=== PATIENT | female | born 1995 | race Caucasian/White ===

== ENCOUNTER → 2017-03-15 | Outpatient (CLI) | payer OTHER ==
[2017-03-15 12:21] LABS: ALT 36 U/L (9-52); AST 17 U/L (14-36); Alkaline Phosphatase 87 U/L (38-126); Anion Gap 13 mmol/L; Blood Urea Nitrogen 10 mg/dL (7-17); Carbon Dioxide 25 mmol/L (22-30); Chloride 105 mmol/L (98-107); Glucose 87 mg/dL (74-99); Non-African American GFR(MDRD) >60 (>60 ml/min/1.73 sqM); Potassium 4.4 mmol/L (3.5-5.1); Sodium 143 mmol/L (137-145); Total Bilirubin 0.4 mg/dL (0.2-1.3); Total Protein 7.5 g/dL (6.3-8.2)
[2017-03-15 12:26] LABS: Basophils % (A) 0 %; CH 29.1; CHCM 33.2; Eosinophils # (A) 0.4 k/uL (0-0.7); Eosinophils % (A) 5 %; HCT 39.8 % (34.0-46.0); HDW 2.42; HGB 13.3 gm/dL (11.4-16.0); Luc % (Auto) 3; Lymphocytes # (A) 1.7 k/uL (1.0-4.8); Lymphocytes % (A) 26 %; MCH 29.4 pg (25.0-35.0); MCHC 33.5 g/dL (31.0-37.0); Mean Platelet Volume 6.6; Monocytes # (A) 0.3 k/uL (0-1.0); Monocytes % (A) 4 %; Neutrophils # (A) 3.9 k/uL (1.3-7.7); Neutrophils % (A) 61 %; RBC 4.52 m/uL (3.80-5.40); WBC 6.4 k/uL (4.0-11.0); WBC (Perox) 6.49
[2017-03-15 13:09] LABS: Vitamin B12 425 pg/mL (239-931)
[2017-03-16 06:43] LABS: EBV - EA (IgG) 77.5 U/mL (<9.0); EBV - VCA IgM 13.8 U/mL (<36.0)
[2017-03-17 13:00] LABS: Strep DNASE B Antibody <86 U/mL (0-260)
== END | disposition home or self-care (01) ==
LOC: LABWHC1 11:09
PROVIDERS: ATTEND Pediatrics Adolescent Medicine
DX: Z00.01 Encounter for general adult medical examination with abnormal findings (principal); F33.9 Major depressive disorder, recurrent, unspecified
CPT/HCPCS: 36415; 80053; 82306; 82607; 85025; 86060; 86215; 86663; 86664; 86665

== ENCOUNTER → 2017-09-27 | Outpatient (CLI) | payer OTHER ==
[2017-09-27 11:35] LABS: Basophils % (A) 0 %; Eosinophils # (A) 0.2 k/uL (0-0.7); Eosinophils % (A) 2 %; HCT 43.6 % (34.0-46.0); HGB 14.1 gm/dL (11.4-16.0); Lymphocytes # (A) 1.7 k/uL (1.0-4.8); Lymphocytes % (A) 24 %; MCH 28.6 pg (25.0-35.0); MCHC 32.4 g/dL (31.0-37.0); MCV 88.2 fL (80.0-100.0); Mean Platelet Volume 6.6; Monocytes # (A) 0.3 k/uL (0-1.0); Monocytes % (A) 4 %; Neutrophils # (A) 4.8 k/uL (1.3-7.7); Neutrophils % (A) 68 %; Platelet Count 276 k/uL (150-450); RBC 4.94 m/uL (3.80-5.40); RDW 13.1 % (11.5-15.5); WBC 7.1 k/uL (4.0-11.0)
[2017-09-27 11:53] LABS: ALT 26 U/L (9-52); AST 18 U/L (14-36); Albumin 4.1 g/dL (3.5-5.0); Alkaline Phosphatase 84 U/L (38-126); Amylase 51 U/L (30-110); Anion Gap 11 mmol/L; Blood Urea Nitrogen 16 mg/dL (7-17); Calcium 9.5 mg/dL (8.4-10.2); Carbon Dioxide 27 mmol/L (22-30); Chloride 104 mmol/L (98-107); Glucose 83 mg/dL (74-99); Lipase 136 U/L (23-300); Potassium 4.2 mmol/L (3.5-5.1); Sodium 142 mmol/L (137-145); Total Bilirubin 0.3 mg/dL (0.2-1.3); Total Protein 7.2 g/dL (6.3-8.2)
[2017-09-27 13:41] LABS: Erythrocyte Sedimentation Rate 8 mm/hr (0-20)
== END | disposition home or self-care (01) ==
LOC: LABWHC1 10:59
PROVIDERS: ATTEND Pediatrics Adolescent Medicine
DX: R10.84 Generalized abdominal pain (principal)
CPT/HCPCS: 36415; 80053; 82150; 83690; 85025; 85652; 86060; 86215; 86308

== ENCOUNTER → 2017-09-27 | Outpatient (CLI) | payer OTHER ==
--- NOTE | 2017-09-27 11:44 | US ---
EXAMINATION TYPE: US abdomen complete DATE OF EXAM: 09/27/2017 COMPARISON: NONE CLINICAL HISTORY: R1084 ABD PAIN. Abd pain EXAM MEASUREMENTS: Liver Length: 15.6 cm Gallbladder Wall: 0.1 cm CBD: 0.4 cm Spleen: 10 cm Right Kidney: 11.5 x 3.9 x 4.8 cm Left Kidney: 10.8 x 4.1 x 4.9 cm Some limitations due to overlying bowel gas. Pancreas: wnl Liver: wnl Gallbladder: wnl Evidence for sonographic Moya's sign: No CBD: wnl Spleen: wnl Right Kidney: wnl Left Kidney: wnl Upper IVC: wnl Abd Aorta: wnl IMPRESSION: 1. Unremarkable ultrasound abdomen.
== END | disposition home or self-care (01) ==
LOC: RADUSWWP 10:25
PROVIDERS: ATTEND Pediatrics Adolescent Medicine
DX: R10.84 Generalized abdominal pain (principal)
CPT/HCPCS: 76700

== ENCOUNTER 2017-09-29 10:25 | Emergency (ER) | payer OTHER ==
[2017-09-29] MEDS ORDERED: KETOROLAC 30 MG/ML 1 ML VIAL IVP STA (11:08)
[2017-09-29] MEDS ORDERED: SODIUM CHLORIDE 0.9% 1,000 ML IV STA (11:08)
[2017-09-29] MEDS ORDERED: ONDANSETRON 4 MG/2 ML VIAL IVP STA (11:08)
--- NOTE | 2017-09-29 11:39 | ED ---
Abdominal Pain HPI - General Chief Complaint: Abdominal Pain Stated Complaint: LEFT SIDE/FLANK PAIN Time Seen by Provider: 09/29/17 10:41 Source: patient, RN notes reviewed, old records reviewed Mode of arrival: ambulatory Limitations: no limitations - History of Present Illness Initial Comments: This patient is a 22-year-old female presents for his retching complaint of intermittent abdominal pain. She reports that a few weeks that she was having some sharp right-sided abdominal pain lasted for 20 minutes she states that that pain subsided afterwards. Patient reports over the past few days. Having some pain in her left flank radiates down her abdomen. Denies any urinary symptoms. No history of kidney stones. Patient relates that she had ovarian cysts in the past about maybe the pain was related to this. She reports she feels nauseated. She states that she has history of constipation. She did have some bloody stools over the past few weeks but has not had anything recently. - Related Data Home Medications Medication Instructions Recorded Confirmed Ibuprofen [Motrin Ib] 800 mg PO Q6H PRN 09/29/17 09/29/17 Previous Rx's Medication Instructions Recorded Dicyclomine [Bentyl] 10 mg PO TID #12 capsule 09/29/17 Ondansetron [Zofran] 4 mg PO Q8HR PRN #12 tab 09/29/17 traMADol HCl [Ultram] 50 mg PO Q6H PRN #12 tab 09/29/17 Allergies Allergy/AdvReac Type Severity Reaction Status Date / Time No Known Allergies Allergy Verified 09/29/17 11:20 Review of Systems ROS Statement: Those systems with pertinent positive or pertinent negative responses have been documented in the HPI. ROS Other: All systems not noted in ROS Statement are negative. Past Medical History Past Medical History: No Reported History History of Any Multi-Drug Resistant Organisms: None Reported Past Surgical History: No Surgical Hx Reported Past Psychological History: Depression Smoking Status: Never smoker Past Alcohol Use History: Occasional Past Drug Use History: None Reported General Exam Limitations: no limitations Course Vital Signs 09/29/17 09/29/17 09/29/17 10:35 13:30 14:30 Temperature 97.8 F Pulse Rate 84 70 72 Respiratory 16 18 18 Rate Blood Pressure 128/78 128/78 118/80 O2 Sat by Pulse 100 98 98 Oximetry 09/29/17 15:01 Temperature 98.6 F Pulse Rate 80 Respiratory 18 Rate Blood Pressure 123/76 O2 Sat by Pulse 98 Oximetry Medical Decision Making - Medical Decision Making This patient is a 22-year-old female presents for complaint of intermittent abdominal pain. She reports that a few weeks that she was having some sharp right-sided abdominal pain lasted for 20 minutes she states that that pain subsided afterwards. Patient reports over the past few days ahe Having some pain in her left flank radiates down her abdomen. Denies any urinary symptoms. No history of kidney stones. Patient has tenderness over left lower abdominal pain. jPatient is mildly tendern. Lab work preformed and shows no abnormalities. Patient underwent CT scan, negaitve for any acute process. Patient has a right ovarian cyst. Discussed patient symptoms sound similiar to IBS, and pain can be from ovarian cyst as well. Discussed follow up with GI and [facility] specialty. REturn paramters discussed. - Lab Data Result diagrams: 09/29/17 11:35 09/29/17 11:35 Lab Results 09/29/17 09/29/17 09/29/17 Range/Units 11:25 11:25 11:35 WBC (4.0-11.0) k/uL RBC (3.80-5.40) m/uL Hgb (11.4-16.0) gm/dL Hct (34.0-46.0) % MCV (80.0-100.0) fL MCH (25.0-35.0) pg MCHC (31.0-37.0) g/dL RDW (11.5-15.5) % Plt Count (150-450) k/uL Neutrophils % % Lymphocytes % % Monocytes % % Eosinophils % % Basophils % % Neutrophils # (1.3-7.7) k/uL Lymphocytes # (1.0-4.8) k/uL Monocytes # (0-1.0) k/uL Eosinophils # (0-0.7) k/uL Basophils # (0-0.2) k/uL Sodium 142 (137-145) mmol/L Potassium 4.4 (3.5-5.1) mmol/L Chloride 105 (98-107) mmol/L Carbon Dioxide 26 (22-30) mmol/L Anion Gap 11 mmol/L BUN 13 (7-17) mg/dL Creatinine 0.70 (0.52-1.04) mg/dL Est GFR (MDRD) Af Amer >60 (>60 ml/min/1.73 sqM) Est GFR (MDRD) Non-Af >60 (>60 ml/min/1.73 sqM) Glucose 85 (74-99) mg/dL Calcium 10.1 (8.4-10.2) mg/dL Total Bilirubin 0.4 (0.2-1.3) mg/dL AST 24 (14-36) U/L ALT 31 (9-52) U/L Alkaline Phosphatase 97 (38-126) U/L Total Protein 8.3 H (6.3-8.2) g/dL Albumin 4.6 (3.5-5.0) g/dL Amylase 78 (30-110) U/L Lipase 166 (23-300) U/L Urine Color Light Yellow Urine Appearance Cloudy H (Clear) Urine pH 6.5 (5.0-8.0) Ur Specific [place] 1.018 (1.001-1.035) Urine Protein Negative (Negative) Urine Glucose (UA) Negative (Negative) Urine Ketones Negative (Negative) Urine Blood Negative (Negative) Urine Nitrite Negative (Negative) Urine Bilirubin Negative (Negative) Urine Urobilinogen <2.0 (<2.0) mg/dL Ur Leukocyte Esterase Negative (Negative) Urine RBC 1 (0-5) /hpf Urine WBC 2 (0-5) /hpf Ur Squamous Epith Cells 6 H (0-4) /hpf Urine Bacteria Few H (None) /hpf Urine Mucus Rare H (None) /hpf Urine HCG, Qual Not Detected (Not Detectd) 09/29/17 Range/Units 11:35 WBC 8.7 (4.0-11.0) k/uL RBC 4.99 (3.80-5.40) m/uL Hgb 14.3 (11.4-16.0) gm/dL Hct 43.1 (34.0-46.0) % MCV 86.3 (80.0-100.0) fL MCH 28.7 (25.0-35.0) pg MCHC 33.3 (31.0-37.0) g/dL RDW 13.4 (11.5-15.5) % Plt Count 273 (150-450) k/uL Neutrophils % 69 % Lymphocytes % 22 % Monocytes % 5 % Eosinophils % 2 % Basophils % 0 % Neutrophils # 6.1 (1.3-7.7) k/uL Lymphocytes # 1.9 (1.0-4.8) k/uL Monocytes # 0.4 (0-1.0) k/uL Eosinophils # 0.2 (0-0.7) k/uL Basophils # 0.0 (0-0.2) k/uL Sodium (137-145) mmol/L Potassium (3.5-5.1) mmol/L Chloride (98-107) mmol/L Carbon Dioxide (22-30) mmol/L Anion Gap mmol/L BUN (7-17) mg/dL Creatinine (0.52-1.04) mg/dL Est GFR (MDRD) Af Amer (>60 ml/min/1.73 sqM) Est GFR (MDRD) Non-Af (>60 ml/min/1.73 sqM) Glucose (74-99) mg/dL Calcium (8.4-10.2) mg/dL Total Bilirubin (0.2-1.3) mg/dL AST (14-36) U/L ALT (9-52) U/L Alkaline Phosphatase (38-126) U/L Total Protein (6.3-8.2) g/dL Albumin (3.5-5.0) g/dL Amylase (30-110) U/L Lipase (23-300) U/L Urine Color Urine Appearance (Clear) Urine pH (5.0-8.0) Ur Specific [place] (1.001-1.035) Urine Protein (Negative) Urine Glucose (UA) (Negative) Urine Ketones (Negative) Urine Blood (Negative) Urine Nitrite (Negative) Urine Bilirubin (Negative) Urine Urobilinogen (<2.0) mg/dL Ur Leukocyte Esterase (Negative) Urine RBC (0-5) /hpf Urine WBC (0-5) /hpf Ur Squamous Epith Cells (0-4) /hpf Urine Bacteria (None) /hpf Urine Mucus (None) /hpf Urine HCG, Qual (Not Detectd) - Radiology Data Radiology results: report reviewed Dominant right ovarian cyst. Otherwise negative CT of the abdomen and pelvis. 3 cm cyst on the right ovary. Disposition Clinical Impression: Ovarian cyst, Abdominal pain Disposition: HOME SELF-CARE Condition: Good Instructions: Abdominal Pain (ED) Additional Instructions: Patient advised follow-up with primary care physician as well as the GI and OB/ [facility] PA[facility]ABLE [facility]IST[facility] specialist. Return to the emergency department if any alarming signs or symptoms occur. Prescriptions: Dicyclomine [Bentyl] 10 mg PO TID #12 capsule Ondansetron [Zofran] 4 mg PO Q8HR PRN #12 tab PRN Reason: Pain traMADol HCl [Ultram] 50 mg PO Q6H PRN #12 tab PRN Reason: Pain Referrals: Jenny Lowry MD [Primary Care Provider] - 1-2 days Martin Laughlin MD [STAFF PHYSICIAN] - 1-2 days Soco Correa MD [STAFF PHYSICIAN] - 1-2 days Time of Disposition: 14:33
[2017-09-29 11:40] LABS: Appearance,Urine Cloudy (Clear); Bacteria,Urine Few /hpf; Bilirubin,Urine Negative (Negative); Blood,Urine Negative (Negative); Color,Urine Light Yellow; Glucose,Urine (UA) Negative (Negative); Ketones,Urine Negative (Negative); Leukocyte Esterase,Urine Negative (Negative); Mucus,Urine Rare /hpf; PH, Urine 6.5 (5.0-8.0); Protein,Urine Negative (Negative); RBC,Urine 1 /hpf (0-5); Specific Gravity,Urine 1.018 (1.001-1.035); Squamous Epithelial Cell,Urine 6 /hpf (0-4); Urobilinogen,Urine <2.0 mg/dL (<2.0); WBC,Urine 2 /hpf (0-5)
[2017-09-29 11:50] LABS: Basophils % (A) 0 %; Eosinophils # (A) 0.2 k/uL (0-0.7); Eosinophils % (A) 2 %; HCT 43.1 % (34.0-46.0); HGB 14.3 gm/dL (11.4-16.0); Lymphocytes # (A) 1.9 k/uL (1.0-4.8); Lymphocytes % (A) 22 %; MCH 28.7 pg (25.0-35.0); MCHC 33.3 g/dL (31.0-37.0); MCV 86.3 fL (80.0-100.0); Mean Platelet Volume 6.9; Monocytes # (A) 0.4 k/uL (0-1.0); Monocytes % (A) 5 %; Neutrophils # (A) 6.1 k/uL (1.3-7.7); Neutrophils % (A) 69 %; Platelet Count 273 k/uL (150-450); RBC 4.99 m/uL (3.80-5.40); RDW 13.4 % (11.5-15.5); WBC 8.7 k/uL (4.0-11.0)
[2017-09-29 12:03] LABS: ALT 31 U/L (9-52); AST 24 U/L (14-36); Albumin 4.6 g/dL (3.5-5.0); Alkaline Phosphatase 97 U/L (38-126); Amylase 78 U/L (30-110); Anion Gap 11 mmol/L; Blood Urea Nitrogen 13 mg/dL (7-17); Calcium 10.1 mg/dL (8.4-10.2); Carbon Dioxide 26 mmol/L (22-30); Chloride 105 mmol/L (98-107); Glucose 85 mg/dL (74-99); Lipase 166 U/L (23-300); Potassium 4.4 mmol/L (3.5-5.1); Sodium 142 mmol/L (137-145); Total Bilirubin 0.4 mg/dL (0.2-1.3); Total Protein 8.3 g/dL (6.3-8.2)
--- NOTE | 2017-09-29 12:43 | XR ---
EXAMINATION TYPE: XR KUB DATE OF EXAM: 09/29/2017 COMPARISON: NONE HISTORY: Flank pain. Abdominal pain. TECHNIQUE: 2 views FINDINGS: Bowel gas pattern is normal. There is no sign of intestinal obstruction or pneumoperitoneum . Fecal pattern is normal. There is no evidence of a mass. There are no pathologic calcifications. Angela ng bases are clear. IMPRESSION: Nonacute abdomen.
[2017-09-29] MEDS ORDERED: RX INFO: IV CONTRAST WAS GIVEN 1 EACH MISC MISCELLANE PRN (13:28)
--- NOTE | 2017-09-29 14:20 | CT ---
EXAMINATION TYPE: CT abdomen pelvis w con DATE OF EXAM: 09/29/2017 COMPARISON: NONE HISTORY: Lt sided pain CT DLP: 1638 mGycm Automated exposure control for dose reduction was used. TECHNIQUE: Helical acquisition of images was performed from the lung bases through the pelvis. CONTRAST: Performed without Oral Contrast and with IV Contrast, patient injected with 100 mL of Omnipaque 300. FINDINGS: Lung bases are clear. There is no pleural effusion. Heart size is normal. Liver spleen pancreas gallbladder appear normal. Bile ducts are not dilated. There is no adrenal mass . Kidneys have normal size and contour. There is no hydronephrosis. Ureters are not dilated. There is no retroperitoneal adenopathy. There is no ascites. Bladder distends smoothly. There is a 3 cm cyst on the right ovary. The uterus is anteverted. I see no intestinal wall thickening. There are no dilated loops. There is no sign of appendicitis. Ap pendix is not definitely seen. I see no bony destructive process. IMPRESSION: DOMINANT RIGHT OVARIAN CYST. OTHERWISE NEGATIVE CT SCAN OF THE ABDOMEN AND PELVIS.
[2017-09-29 15:01] VITALS: RESP 18
[2017-09-29 15:02] VITALS: BP 123/76; PULSE 80; TEMP 98.6
== END 2017-09-29 15:01 | disposition home or self-care (01) ==
LOC: EC 10:25
DX: N83.201 Unspecified ovarian cyst, right side (principal); R11.0 Nausea
CPT/HCPCS: 36415; 80053; 82150; 83690; 85025; 81001; 81025; 87086; 74018; 74177; 99285; 96374; 96375; 96361; J2405; J1885; Q9967

== ENCOUNTER 2017-10-06 20:17 | Emergency (ER) | payer OTHER ==
--- NOTE | 2017-10-06 20:51 | ED ---
Fall HPI - General Chief Complaint: Fall Stated Complaint: [facility]-FALL,HEAD INJURY,NUMBNESS Time Seen by Provider: 10/06/17 20:24 Source: patient Mode of arrival: EMS - History of Present Illness Initial Comments: 22-year-old female patient presents to the emergency department today for evaluation after experiencing a slip and fall accident at work. Patient reports on 7:30 she was coming around a corner when she slipped in water and fell hitting her head on the floor. She denies a loss of consciousness but states her vision did go dark for a moment and she immediately started crying due to the pain. Patient is currently reporting headache, neck pain, and pain in her "tailbone". Patient states she is having some numbness in her lower extremities. She denies any loss of bowel or bladder control. Denies any saddle anesthesia. She denies any nausea or vomiting. Denies any chest pain, shortness of breath, dizziness, or weakness. She is also reporting some numbness in her bilateral hands. She denies any chance of , had a negative test here a few days ago. - Related Data Home Medications Medication Instructions Recorded Confirmed No Known Home Medications [No 10/06/17 10/06/17 Known Home Medications] Allergies Allergy/AdvReac Type Severity Reaction Status Date / Time No Known Allergies Allergy Verified 10/06/17 20:50 Review of Systems ROS Statement: Those systems with pertinent positive or pertinent negative responses have been documented in the HPI. ROS Other: All systems not noted in ROS Statement are negative. Past Medical History Past Medical History: No Reported History History of Any Multi-Drug Resistant Organisms: None Reported Past Surgical History: No Surgical Hx Reported Past Psychological History: Depression Smoking Status: Never smoker Past Alcohol Use History: Occasional Past Drug Use History: None Reported General Exam Limitations: no limitations, language barrier General appearance: alert, in no apparent distress, other (This is a well- developed, well-nourished adult female patient in no acute distress. Vital signs upon presentation are temperature 98.1F, pulse 100, respirations 16, blood pressure 129/85, pulse ox 100% on room air.) Head exam: Present: other (Patient has some soft tissue swelling and tenderness over the posterior scalp.) Eye exam: Present: normal appearance, PERRL, EOMI. Absent: scleral icterus, conjunctival injection, periorbital swelling ENT exam: Present: normal exam, normal oropharynx, mucous membranes moist Neck exam: Present: normal inspection, tenderness (Mild tenderness over the mid cervical spine). Absent: meningismus, full ROM (C-collar in place), lymphadenopathy Respiratory exam: Present: normal lung sounds bilaterally. Absent: respiratory distress, wheezes, rales, rhonchi, stridor Cardiovascular Exam: Present: regular rate, normal rhythm, normal heart sounds. Absent: systolic murmur, diastolic murmur, rubs, gallop, clicks GI/Abdominal exam: Present: soft, normal bowel sounds. Absent: distended, tenderness, guarding, rebound, rigid Extremities exam: Present: normal inspection, full ROM, normal capillary refill , other (Skin to the upper and lower extremities is pink, warm, and dry. Cap refills less than 3 seconds. Radial pulses are 2+ and equal bilaterally. Pedal pulses and posttibial pulses are 2+ and equal bilaterally.). Absent: tenderness, pedal edema, joint swelling, calf tenderness Back exam: Present: normal inspection, vertebral tenderness (Sacral spine tenderness) Neurological exam: Present: alert, oriented X3, CN II-XII intact Psychiatric exam: Present: normal affect, normal mood Skin exam: Present: warm, dry, intact, normal color. Absent: rash Course Vital Signs 10/06/17 10/06/17 10/06/17 20:23 22:11 23:19 Temperature 98.1 F 97.5 F L Pulse Rate 100 83 101 H Respiratory 16 18 17 Rate Blood Pressure 129/85 124/65 O2 Sat by Pulse 100 100 100 Oximetry Medical Decision Making - Medical Decision Making 22-year-old female patient presented to the emergency department today for evaluation after soap and fall injury at work. Physical examination did reveal tenderness to the posterior cervical spine as well as the sacral spine. Patient was neurologically intact. We did perform computed tomography scan of the brain and C-spine which was negative for any acute intracranial abnormalities were osseous abnormalities. We did clear the C-spine and patient went to x-ray for evaluation of her lumbosacral spine. X-ray was negative for any acute fracture or dislocations. Did discuss findings with the patient. She is instructed to take Tylenol Motrin for pain control. She is educated regarding head injury and concussion. She is instructed to follow-up with a no show health services or her primary care physician for further evaluation. She is instructed to return here immediately for any new, worsening, or concerning symptoms. She verbalizes understanding and agrees with this plan. - Radiology Data Radiology results: report reviewed, image reviewed 5 views of the lumbosacral spine showed lumbar vertebrae abnormal spacing [place]. Posterior elements are intact. Sacroiliac joints appear normal. There is no evidence of a compression fracture. Impression by Dr. Cabezas shows negative lumbar spine exam. CT of the head and cervical spine are performed without contrast. Findings show ventricles and sulci appear normal. There is no mass effect or midline shift. There is no sign of intracranial hemorrhage. The calvarium is intact. Cervical vertebra abnormal spacing alignment. Posterior elements are intact. Physical base is intact. There is no evidence of a fracture. Facet joint appears normal. Impression by Dr. Cabezas shows normal computed tomography scan of the brain, normal computed tomography scan of the cervical spine. Disposition Clinical Impression: Head injury, Acute low back pain, Contusion Disposition: HOME SELF-CARE Condition: Good Instructions: Concussion (ED), Head Injury (ED), Acute Low Back Pain (ED) Additional Instructions: Take medications as directed. Follow up with her primary care physician for recheck in 1-2 days. Return here immediately for any new, worsening, or concerning symptoms. Referrals: Jenny Lowry MD [Primary Care Provider] - 1-2 days Time of Disposition: 22:59
--- NOTE | 2017-10-06 22:25 | CT ---
EXAMINATION TYPE: CT brain twin wo con DATE OF EXAM: 10/06/2017 COMPARISON: NONE HISTORY: Head and neck pain after fall. CT DLP: 1388.6 mGycm Automated exposure control for dose reduction was used. TECHNIQUE: CT scan of the head and cervical spine are performed without contrast. FINDINGS: Ventricles and sulci appear normal. There is no mass effect nor midline shift. There is n o sign of intracranial hemorrhage. The calvarium is intact. Cervical vertebra have normal spacing and alignment. Posterior elements are intact. Skull base is int act. There is no evidence of a fracture. Facet joints appears normal. IMPRESSION: Normal CT scan of the brain. Normal CT scan of the cervical spine.
--- NOTE | 2017-10-06 22:54 | XR ---
EXAMINATION TYPE: XR lumbosacral spine min 4V DATE OF EXAM: 10/06/2017 COMPARISON: NONE HISTORY: Back pain TECHNIQUE: 5 views FINDINGS: The lumbar vertebra have normal spacing and alignment. Posterior elements are intact. Sacro iliac joints appear normal. There is no evidence of a compression fracture. IMPRESSION: Negative lumbar spine exam.
[2017-10-06] MEDS ORDERED: IBUPROFEN 600 MG TAB PO STA (22:59)
[2017-10-06] MEDS ORDERED: ACETAMINOPHEN TAB 325 MG TAB PO STA (22:59)
[2017-10-06 23:20] VITALS: BP 124/65; PULSE 101; RESP 17; TEMP 97.5
== END 2017-10-06 23:30 | disposition home or self-care (01) ==
LOC: EC 20:17
DX: S00.03XA Contusion of scalp, initial encounter (principal); M54.5 Low back pain; W01.198A Fall on same level from slipping, tripping and stumbling with subsequent striking against other object, initial encounter; Y92.69 Other specified industrial and construction area as the place of occurrence of the external cause; Y99.0 Civilian activity done for income or pay
CPT/HCPCS: 70450; 72110; 72125; 99284

== ENCOUNTER → 2017-12-10 | Outpatient (CLI) | payer OTHER | END | disposition home or self-care (01) | LOC: LABMAIN 18:25 | PROVIDERS: ATTEND Midwife | DX: N91.2 Amenorrhea, unspecified (principal) | CPT/HCPCS: 84702 ==

== ENCOUNTER 2018-09-03 06:57 | Emergency (ER) | payer BC, OTHER ==
[2018-09-03] MEDS ORDERED: KETOROLAC 30 MG/ML 1 ML VIAL IVP STA (07:30)
[2018-09-03] MEDS ORDERED: ONDANSETRON 4 MG/2 ML VIAL IVP STA (07:30)
[2018-09-03] MEDS ORDERED: ACETAMINOPHEN TAB 500 MG TAB PO STA (07:30)
[2018-09-03] MEDS ORDERED: SODIUM CHLORIDE 0.9% 1,000 ML IV ONE (07:30)
[2018-09-03 07:39] LABS: Amorphous Sediment,Urine Rare /hpf; Appearance,Urine Turbid (Clear); Bilirubin,Urine Negative (Negative); Blood,Urine Negative (Negative); Color,Urine Yellow; Glucose,Urine (UA) Negative (Negative); Ketones,Urine Negative (Negative); Leukocyte Esterase,Urine Negative (Negative); Mucus,Urine Occasional /hpf; Nitrite,Urine Negative (Negative); Protein,Urine Trace (Negative); Specific Gravity,Urine 1.025 (1.001-1.035); Squamous Epithelial Cell,Urine 6 /hpf (0-4)
--- NOTE | 2018-09-03 07:46 | ED ---
General Adult HPI - General Chief complaint: Back Pain/Injury Stated complaint: Back Pain Time Seen by Provider: 09/03/18 07:08 Source: patient, RN notes reviewed, old records reviewed Mode of arrival: ambulatory Limitations: no limitations - History of Present Illness Initial comments: 23-year-old female presenting with flulike symptoms. Patient states she's had nasal congestion, sore throat, subjective fever and chills as well as nausea for the past several days. Symptoms have worsened over the past 24 hours. Denies abdominal pain, denies diarrhea. Denies urinary frequency, urgency, or dysuria. Patient does report low back pain as well as generalized body aches. She said cough which is nonproductive. No chronic medical problems. - Related Data Previous Rx's Medication Instructions Recorded Azithromycin [Zithromax Z-pack] 0 mg PO DIRECTED #6 tab 09/03/18 Allergies Allergy/AdvReac Type Severity Reaction Status Date / Time No Known Allergies Allergy Verified 09/03/18 07:25 Review of Systems ROS Statement: Those systems with pertinent positive or pertinent negative responses have been documented in the HPI. ROS Other: All systems not noted in ROS Statement are negative. Past Medical History Past Medical History: No Reported History History of Any Multi-Drug Resistant Organisms: None Reported Past Surgical History: No Surgical Hx Reported Past Psychological History: Depression Smoking Status: Never smoker Past Alcohol Use History: Occasional Past Drug Use History: None Reported General Exam Limitations: no limitations General appearance: alert, in no apparent distress Head exam: Present: atraumatic, normocephalic Eye exam: Present: normal appearance, PERRL ENT exam: Present: mucous membranes dry, other (Mild pharyngeal erythema, no tonsillar swelling or exudate) Neck exam: Present: normal inspection. Absent: tenderness, meningismus Respiratory exam: Present: normal lung sounds bilaterally. Absent: respiratory distress, wheezes, rales Cardiovascular Exam: Present: normal rhythm, tachycardia GI/Abdominal exam: Present: soft. Absent: distended, tenderness, guarding, rebound Extremities exam: Present: normal inspection, normal capillary refill. Absent: pedal edema Back exam: Present: normal inspection, paraspinal tenderness (Lumbar). Absent: CVA tenderness (R), CVA tenderness (L) Neurological exam: Present: alert, oriented X3, CN II-XII intact. Absent: motor sensory deficit Psychiatric exam: Present: normal affect, normal mood Skin exam: Present: warm, dry, intact. Absent: cyanosis, diaphoretic Course Vital Signs 09/03/18 07:00 Temperature 99.5 F Pulse Rate 120 H Respiratory 20 Rate Blood Pressure 128/83 O2 Sat by Pulse 97 Oximetry - Reevaluation(s) Reevaluation #1: 09/03/18 10:11 Patient reevaluated, resting comfortably, symptoms improved. Medical Decision Making - Medical Decision Making 23-year-old female with cough, URI symptoms, myalgias. Patient is influenza A positive. She has a normal CBC, normal CMP, urinalysis negative for infection. She did have some lumbar spinal pain, x-rays obtained, negative for any acute abnormalities. Chest x-ray shows concern for possible pneumonia. Patient was outside all treatment window for influenza, will be covered for pneumonia. Started on azithromycin. Symptomatic treatment at home, return with worsening or changing symptoms. - Lab Data Result diagrams: 09/03/18 07:45 09/03/18 07:45 Lab Results 09/03/18 09/03/18 09/03/18 Range/Units 07:10 07:10 07:45 WBC 3.9 (3.8-10.6) k/uL RBC 4.79 (3.80-5.40) m/uL Hgb 13.8 (11.4-16.0) gm/dL Hct 41.3 (34.0-46.0) % MCV 86.2 (80.0-100.0) fL MCH 28.7 (25.0-35.0) pg MCHC 33.3 (31.0-37.0) g/dL RDW 13.4 (11.5-15.5) % Plt Count 230 (150-450) k/uL Neutrophils % 79 % Lymphocytes % 7 % Monocytes % 10 % Eosinophils % 1 % Basophils % 0 % Neutrophils # 3.1 (1.3-7.7) k/uL Lymphocytes # 0.3 L (1.0-4.8) k/uL Monocytes # 0.4 (0-1.0) k/uL Eosinophils # 0.0 (0-0.7) k/uL Basophils # 0.0 (0-0.2) k/uL Sodium (137-145) mmol/L Potassium (3.5-5.1) mmol/L Chloride (98-107) mmol/L Carbon Dioxide (22-30) mmol/L Anion Gap mmol/L BUN (7-17) mg/dL Creatinine (0.52-1.04) mg/dL Est GFR (CKD-EPI)AfAm (>60 ml/min/1.73 sqM) Est GFR (CKD-EPI)NonAf (>60 ml/min/1.73 sqM) Glucose (74-99) mg/dL Calcium (8.4-10.2) mg/dL Total Bilirubin (0.2-1.3) mg/dL AST (14-36) U/L ALT (9-52) U/L Alkaline Phosphatase (38-126) U/L Total Protein (6.3-8.2) g/dL Albumin (3.5-5.0) g/dL Urine Color Yellow Urine Appearance Turbid H (Clear) Urine pH 8.0 (5.0-8.0) Ur Specific [place] 1.025 (1.001-1.035) Urine Protein Trace H (Negative) Urine Glucose (UA) Negative (Negative) Urine Ketones Negative (Negative) Urine Blood Negative (Negative) Urine Nitrite Negative (Negative) Urine Bilirubin Negative (Negative) Urine Urobilinogen 2.0 (<2.0) mg/dL Ur Leukocyte Esterase Negative (Negative) Ur Squamous Epith Cells 6 H (0-4) /hpf Amorphous Sediment Rare H (None) /hpf Urine Mucus Occasional H (None) /hpf Urine HCG, Qual Not Detected (Not Detectd) Influenza Type A RNA (Not Detectd) Influenza Type B (PCR) (Not Detectd) 09/03/18 09/03/18 Range/Units 07:45 07:45 WBC (3.8-10.6) k/uL RBC (3.80-5.40) m/uL Hgb (11.4-16.0) gm/dL Hct (34.0-46.0) % MCV (80.0-100.0) fL MCH (25.0-35.0) pg MCHC (31.0-37.0) g/dL RDW (11.5-15.5) % Plt Count (150-450) k/uL Neutrophils % % Lymphocytes % % Monocytes % % Eosinophils % % Basophils % % Neutrophils # (1.3-7.7) k/uL Lymphocytes # (1.0-4.8) k/uL Monocytes # (0-1.0) k/uL Eosinophils # (0-0.7) k/uL Basophils # (0-0.2) k/uL Sodium 139 (137-145) mmol/L Potassium 4.4 (3.5-5.1) mmol/L Chloride 106 (98-107) mmol/L Carbon Dioxide 27 (22-30) mmol/L Anion Gap 6 mmol/L BUN 9 (7-17) mg/dL Creatinine 0.76 (0.52-1.04) mg/dL Est GFR (CKD-EPI)AfAm >90 (>60 ml/min/1.73 sqM) Est GFR (CKD-EPI)NonAf >90 (>60 ml/min/1.73 sqM) Glucose 120 H (74-99) mg/dL Calcium 9.4 (8.4-10.2) mg/dL Total Bilirubin 0.3 (0.2-1.3) mg/dL AST 20 (14-36) U/L ALT 25 (9-52) U/L Alkaline Phosphatase 74 (38-126) U/L Total Protein 7.0 (6.3-8.2) g/dL Albumin 3.9 (3.5-5.0) g/dL Urine Color Urine Appearance (Clear) Urine pH (5.0-8.0) Ur Specific [place] (1.001-1.035) Urine Protein (Negative) Urine Glucose (UA) (Negative) Urine Ketones (Negative) Urine Blood (Negative) Urine Nitrite (Negative) Urine Bilirubin (Negative) Urine Urobilinogen (<2.0) mg/dL Ur Leukocyte Esterase (Negative) Ur Squamous Epith Cells (0-4) /hpf Amorphous Sediment (None) /hpf Urine Mucus (None) /hpf Urine HCG, Qual (Not Detectd) Influenza Type A RNA Detected H (Not Detectd) Influenza Type B (PCR) Not Detected (Not Detectd) Disposition Clinical Impression: Influenza A, Pneumonia Disposition: HOME SELF-CARE Condition: Good Instructions (If sedation given, give patient instructions): Influenza (ED), Community Acquired Pneumonia (ED) Prescriptions: Azithromycin [Zithromax Z-pack] 0 mg PO DIRECTED #6 tab Is patient prescribed a controlled substance at d/c from ED?: No Referrals: Keenan Barber MD [Primary Care Provider] - 1-2 days Time of Disposition: 10:13
[2018-09-03 08:05] LABS: Basophils % (A) 0 %; Eosinophils % (A) 1 %; HCT 41.3 % (34.0-46.0); HGB 13.8 gm/dL (11.4-16.0); Lymphocytes # (A) 0.3 k/uL (1.0-4.8); Lymphocytes % (A) 7 %; MCH 28.7 pg (25.0-35.0); MCHC 33.3 g/dL (31.0-37.0); MCV 86.2 fL (80.0-100.0); Mean Platelet Volume 6.1; Monocytes # (A) 0.4 k/uL (0-1.0); Monocytes % (A) 10 %; Neutrophils # (A) 3.1 k/uL (1.3-7.7); Neutrophils % (A) 79 %; Platelet Count 230 k/uL (150-450); RBC 4.79 m/uL (3.80-5.40); RDW 13.4 % (11.5-15.5); WBC 3.9 k/uL (3.8-10.6)
[2018-09-03 08:06] LABS: ALT 25 U/L (9-52); AST 20 U/L (14-36); Albumin 3.9 g/dL (3.5-5.0); Alkaline Phosphatase 74 U/L (38-126); Anion Gap 6 mmol/L; Blood Urea Nitrogen 9 mg/dL (7-17); Calcium 9.4 mg/dL (8.4-10.2); Carbon Dioxide 27 mmol/L (22-30); Chloride 106 mmol/L (98-107); Glucose 120 mg/dL (74-99); Potassium 4.4 mmol/L (3.5-5.1); Sodium 139 mmol/L (137-145); Total Bilirubin 0.3 mg/dL (0.2-1.3)
--- NOTE | 2018-09-03 08:10 | XR ---
EXAMINATION TYPE: XR chest 2V DATE OF EXAM: 09/03/2018 COMPARISON: NONE HISTORY: Congestion and fever. TECHNIQUE: Frontal and lateral views of the chest are obtained. FINDINGS: Patchy density right infrahilar region may reflect developing pneumonia. Correlate clinically and pro sunni studies are advised. No evidence for pneumothorax. No pleural effusion. The cardiac silhouette size is within normal limits. The osseous structures are grossly intact. IMPRESSION: 1. Patchy density right infrahilar region may reflect developing pneumonia. Correlate clinically and progress studies are advised.
--- NOTE | 2018-09-03 08:11 | XR ---
EXAMINATION TYPE: XR lumbar spine 2 or 3V DATE OF EXAM: 09/03/2018 CLINICAL HISTORY: pain TECHNIQUE: Three views of the lumbar spine are submitted. COMPARISON: None. FINDINGS: There are 5 lumbar type vertebral bodies identified. The lumbar spine shows satisfactory alignment w ithout evidence of acute fracture or dislocation. Vertebral body heights are within normal limits. Disc spaces are within normal limits. The overlying soft tissue appears unremarkable. IMPRESSION: No acute fracture or dislocation is seen in the lumbar spine. ICD 10 NO FRACTURE, INITIAL EVALUATION
[2018-09-03 10:36] VITALS: BP 114/80; PULSE 99; RESP 18; TEMP 98.2
== END 2018-09-03 10:36 | disposition home or self-care (01) ==
LOC: EC 06:57
DX: J10.1 Influenza due to other identified influenza virus with other respiratory manifestations (principal); J18.9 Pneumonia, unspecified organism
CPT/HCPCS: 36415; 71046; 72100; 80053; 81001; 81025; 85025; 87502; 96361; 96374; 96375; 99284

== ENCOUNTER 2019-04-27 00:03 | Outpatient (CLI) | payer OTHER ==
[2019-04-27 01:13] LABS: Appearance,Urine Clear (Clear); Bilirubin,Urine Negative (Negative); Blood,Urine Negative (Negative); Color,Urine Light Yellow; Glucose,Urine (UA) Negative (Negative); Ketones,Urine Negative (Negative); Leukocyte Esterase,Urine Negative (Negative); Nitrite,Urine Negative (Negative); Protein,Urine Negative (Negative); Specific Gravity,Urine 1.006 (1.001-1.035); Urobilinogen,Urine <2.0 mg/dL (<2.0)
[2019-04-27 02:14] VITALS: BP 105/62; PULSE 98; RESP 16; TEMP 97.3
--- NOTE | 2019-05-16 08:34 | P.MSEPDOC ---
Presenting Problems - Arrival Data Date of Arrival on Unit: 04/27/19 Time of Arrival on Unit: 00:03 Mode of Transport: Wheelchair - Complaint OB-Reason for Admission/Chief Complaint: Other Comment: Pt presents to triage as Doc of month pt with care at [facility]. hosp. pelvic pressure, freq urination, slight crampiness but " not contractions. pt has [place] Rod[place] [facility] [place] 21 [place] due to dialation. 1 cm and thinning of cervix then.states is having pain up in ribs last month comes and goes rates at 8 but mild cramping pain at this time rates at 3 Medical History - Information : 1 Para: 0 Term: 0 : 0 Abortions: Spontaneous or Elective: 0 Number of Living Children: 0 - Gestational Age Gestational Age by STACI (wks/days): 31 Weeks and 6 Days - History Complications: Other Review of Systems - Review of Systems Constitutional: No problems Breast: No problems ENT: No problems Cardiovascular: No problems Respiratory: No problems Gastrointestinal: No problems Genitourinary: No problems Musculoskeletal: No problems Neurological: No problems Skin: No problems Comment: DR Mckeon updated pts reason for visit pelvic pressure and frequent urination. at 31 5/7 week preg with cerclage placed at 21 weeks. orders received for UA and. vag exam. Vital Signs - Temperature Temperature: 97.3 F Temperature Source: Oral - Pulse Right Pulse Rate: 98 Pulse Assessment Method: Automatic Cuff - Respirations Respiratory Rate: 16 Oxygen Delivery Method: Room Air - Blood Pressure Right Arm Blood Pressure: 105/62 Blood Pressure Mean: 76 Blood Pressure Source: Automatic Cuff Medical Screen Scoring (Pre) - Cervical Exam Dilation: 0 cm = 0 Membranes: Intact - Uterine Contractions Frequency: N/A Duration: N/A Intensity: N/A - Maternal Vital Signs Maternal Temperature: N/A Maternal Blood Pressure: N/A Signs of Preeclampsia: N/A Maternal Respirations: N/A - Maternal Trauma Maternal Trauma: N/A - Assessment - Baby A Baseline FHR: 135 Heart Rate - NICHD Category: Category I (Normal) = 0 NST: Reactive Position: N/A Station: N/A - Total Score - Baby A Total Score - Baby A: 0 - Total Score - Baby B Total Score - Baby B: 0 - Total Score - Baby C Total Score - Baby C: 0 - Level of Risk - Baby A Level of Risk - Baby A: Low (0-5) - Level of Risk - Baby B Level of Risk - Baby B: Low (0-5) - Level of Risk - Baby C Level of Risk - Baby C: Low (0-5) Physician Notification (Pre) - Physician Notified Physician Notified Date: 04/27/19 Physician Notified Time: 00:55 Physician/Practitioner Notifed:: Dr Mckeon Spoke With: Dr Mckeon New Order Received: Yes - Notification Comment Comment: 0055 May discharge home if cervix closed and UA normal. Disposition - Disposition OB Disposition: Discharge to home Discharge Date: 04/27/19 Discharge Time: 00:55 I agree with the RN Medical Screening Exam: Yes Risk & Benefit of care provided described in d/c instruction: Yes Diagnosis: FALSE LABOR BEFORE 37 COMPLETED WEEKS OF GEST, THIRD TRI
== END 2019-04-27 01:55 | disposition home or self-care (01) ==
LOC: FBPOP 00:03
PROVIDERS: ATTEND Obstetrics & Gynecology
DX: O47.03 False labor before 37 completed weeks of gestation, third trimester (principal); Z3A.31 31 weeks gestation of pregnancy
CPT/HCPCS: 59025; 81003; 99213

== ENCOUNTER 2021-11-30 11:24 | Emergency (ER) | payer BC ==
[2021-11-30 11:30] VITALS: TEMP 98.6
--- NOTE | 2021-11-30 13:20 | ED ---
General Adult HPI - General Source: patient, RN notes reviewed, old records reviewed Mode of arrival: ambulatory Limitations: no limitations - History of Present Illness -: days(s) (4) Severity scale (1-10): 0 Consistency: constant Improves with: none Worsens with: none Associated Symptoms: weakness, other (spots in vision) <Gigi Whitehead - Last Filed: 11/30/21 15:24> <Butch Cyr - Last Filed: 11/30/21 18:03> - General Chief complaint: Extremity Problem,Nontraumatic Stated complaint: Body Numbness Time Seen by Provider: 11/30/21 13:05 - History of Present Illness Initial comments: 26-year-old female, alert and oriented 4 presents with complaints of bilateral upper arm numbness worse at night since Saturday. Patient states that usually the symptoms resolved after about 30 minutes of being awake however today they remain numb and she's had lower leg weakness and decreased sensation to her upper and lower extremities. She states that she does have spots in her vision that started today intermittently but denies headaches. 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 She reports headaches up to 4 days a week she says sometimes it is behind her right eye symptoms and behind her left eye and says the only thing that works is to sleep the headache away. She denies any fevers, no chest pain no nausea vomiting or diarrhea. She is not on any medications on a daily basis, does not do any drugs , does not smoke. (Gigi Whitehead) - Related Data Home Medications Medication Instructions Recorded Confirmed No Known Home Medications 11/30/21 11/30/21 Allergies Allergy/AdvReac Type Severity Reaction Status Date / Time No Known Allergies Allergy Verified 11/30/21 12:43 Review of Systems ROS Other: All systems not noted in ROS Statement are negative. <Gigi Whitehead - Last Filed: 11/30/21 15:24> ROS Other: All systems not noted in ROS Statement are negative. <Butch Cyr - Last Filed: 11/30/21 18:03> ROS Statement: Those systems with pertinent positive or pertinent negative responses have been documented in the HPI. Past Medical History Past Medical History: No Reported History History of Any Multi-Drug Resistant Organisms: None Reported Past Surgical History: No Surgical Hx Reported Past Psychological History: Depression Smoking Status: Never smoker Past Alcohol Use History: Occasional Past Drug Use History: None Reported <Gigi Whitehead - Last Filed: 11/30/21 15:24> General Exam Limitations: no limitations General appearance: alert, in no apparent distress Head exam: Present: atraumatic, normocephalic, normal inspection Eye exam: Present: normal appearance, PERRL, EOMI. Absent: scleral icterus, conjunctival injection, nystagmus, periorbital swelling, periorbital tenderness ENT exam: Present: normal exam, normal oropharynx, mucous membranes moist Neck exam: Present: normal inspection, full ROM. Absent: tenderness, meningismus, lymphadenopathy, thyromegaly Respiratory exam: Present: normal lung sounds bilaterally. Absent: respiratory distress, accessory muscle use Cardiovascular Exam: Present: regular rate Extremities exam: Present: normal inspection, full ROM, normal capillary refill. Absent: tenderness, pedal edema Back exam: Present: full ROM. Absent: tenderness, CVA tenderness (R), CVA tenderness (L), paraspinal tenderness, vertebral tenderness, rash noted Neurological exam: Present: alert, oriented X3, CN II-XII intact, normal gait Expanded Patient oriented to: Present: person, place, time Speech: Present: fluid speech Cranial nerves: EOM's Intact: Normal, Gag Reflex: Normal, Tongue Deviation: Normal Cerebellar function: Heel to Stewart: Normal, Romberg: Normal Motor strength exam: RUE: 5, LUE: 5, RLE: 5, LLE: 5 Eye Response: (4) open spontaneously Motor Response: (6) obeys commands Verbal Response: (5) oriented Devin Total: 15 Psychiatric exam: Present: normal affect, normal mood, anxious Skin exam: Present: warm, dry, intact, normal color. Absent: cyanosis, diaphoretic, petechiae, pallor <Gigi Whitehead - Last Filed: 11/30/21 15:24> Course - Reevaluation(s) Time: 13:51 <Gigi Whitehead - Last Filed: 11/30/21 15:24> Vital Signs 11/30/21 11/30/21 11:26 17:47 Temperature 98.6 F Pulse Rate 72 80 Respiratory 16 18 Rate Blood Pressure 124/70 104/62 O2 Sat by Pulse 99 98 Oximetry - Reevaluation(s) Reevaluation #1: 11/30/21 13:51 I did speak with Dr. Reyes with neurology regarding my concerns for MS. He states he will evaluate patient at bedside. (Gigi Whitehead) Medical Decision Making - Lab Data Result diagrams: 11/30/21 14:09 11/30/21 14:09 <Gigi Whitehead - Last Filed: 11/30/21 15:24> - Lab Data Result diagrams: 11/30/21 14:09 11/30/21 14:09 <Butch Cyr - Last Filed: 11/30/21 18:03> - Medical Decision Making CT brain shows no acute abnormality, no mass or intracranial bleed. No evidence of leukocytosis electrolytes are unremarkable. Urinalysis shows no evidence of infection and no . I do have concerns for multiple sclerosis therefore neurology, Dr Gutierrez, was consulted and at bedside. He is agreeable to placing patient in observation for an MRA. I did speak also with Dr. Laird who is also agreeable to this plan of care. (Gigi Whitehead) Patient was primarily seen by the mid-level provider. She was admitted for inpatient MRI, as she cannot obtain an outpatient MRI and reasonable amount of time. She was admitted to evaluate for possible MS. Neurology evaluated the patient and ordered the MRI. Patient was admitted. Patient was able to obtain the MRI while she remained in the department. It showed no signs of MS. Patient was medically cleared by neurology, Dr. Gutierrez. Dr. Laird has not yet evaluated the patient, as the patient obtain the MRI prior to his evaluation. He was okay with discharge and wanted to be removed from the chart. As we evaluated the patient, I am okay with discharging the patient home at this time. Prescription be provided by Dr. Gutierrez. He recommended discharge home with EMG of upper extremities. His gases with the patient and she was in agreement this plan. Patient was therefore discharged home in good condition. (Butch Cyr) - Lab Data Lab Results 11/30/21 11/30/21 11/30/21 Range/Units 14:09 14:09 14:09 WBC 8.3 (3.8-10.6) k/uL RBC 4.79 (3.80-5.40) m/uL Hgb 13.7 (11.4-16.0) gm/dL Hct 42.2 (34.0-46.0) % MCV 88.1 (80.0-100.0) fL MCH 28.6 (25.0-35.0) pg MCHC 32.4 (31.0-37.0) g/dL RDW 14.1 (11.5-15.5) % Plt Count 342 (150-450) k/uL MPV 6.8 Neutrophils % 68 % Lymphocytes % 25 % Monocytes % 3 % Eosinophils % 1 % Basophils % 0 % Neutrophils # 5.6 (1.3-7.7) k/uL Lymphocytes # 2.1 (1.0-4.8) k/uL Monocytes # 0.3 (0-1.0) k/uL Eosinophils # 0.1 (0-0.7) k/uL Basophils # 0.0 (0-0.2) k/uL Sodium (137-145) mmol/L Potassium (3.5-5.1) mmol/L Chloride (98-107) mmol/L Carbon Dioxide (22-30) mmol/L Anion Gap mmol/L BUN (7-17) mg/dL Creatinine (0.52-1.04) mg/dL Est GFR (CKD-EPI)AfAm (>60 ml/min/1.73 sqM) Est GFR (CKD-EPI)NonAf (>60 ml/min/1.73 sqM) Glucose (74-99) mg/dL Calcium (8.4-10.2) mg/dL Total Bilirubin (0.2-1.3) mg/dL AST (14-36) U/L ALT (4-34) U/L Alkaline Phosphatase (38-126) U/L Total Protein (6.3-8.2) g/dL Albumin (3.5-5.0) g/dL TSH (0.465-4.680) mIU/L Urine Color Light Yellow Urine Appearance Clear (Clear) Urine pH 6.0 (5.0-8.0) Ur Specific [place] 1.008 (1.001-1.035) Urine Protein Negative (Negative) Urine Glucose (UA) Negative (Negative) Urine Ketones Negative (Negative) Urine Blood Negative (Negative) Urine Nitrite Negative (Negative) Urine Bilirubin Negative (Negative) Urine Urobilinogen <2.0 (<2.0) mg/dL Ur Leukocyte Esterase Small H (Negative) Urine RBC 1 (0-5) /hpf Urine WBC 1 (0-5) /hpf Ur Squamous Epith Cells 1 (0-4) /hpf Urine Bacteria Occasional H (None) /hpf Urine Mucus Rare H (None) /hpf Urine HCG, Qual Not Detected (Not Detectd) 11/30/21 11/30/21 Range/Units 14:09 14:09 WBC (3.8-10.6) k/uL RBC (3.80-5.40) m/uL Hgb (11.4-16.0) gm/dL Hct (34.0-46.0) % MCV (80.0-100.0) fL MCH (25.0-35.0) pg MCHC (31.0-37.0) g/dL RDW (11.5-15.5) % Plt Count (150-450) k/uL MPV Neutrophils % % Lymphocytes % % Monocytes % % Eosinophils % % Basophils % % Neutrophils # (1.3-7.7) k/uL Lymphocytes # (1.0-4.8) k/uL Monocytes # (0-1.0) k/uL Eosinophils # (0-0.7) k/uL Basophils # (0-0.2) k/uL Sodium 139 (137-145) mmol/L Potassium 3.7 (3.5-5.1) mmol/L Chloride 104 (98-107) mmol/L Carbon Dioxide 23 (22-30) mmol/L Anion Gap 12 mmol/L BUN 9 (7-17) mg/dL Creatinine 0.81 (0.52-1.04) mg/dL Est GFR (CKD-EPI)AfAm >90 (>60 ml/min/1.73 sqM) Est GFR (CKD-EPI)NonAf >90 (>60 ml/min/1.73 sqM) Glucose 82 (74-99) mg/dL Calcium 9.4 (8.4-10.2) mg/dL Total Bilirubin 0.9 (0.2-1.3) mg/dL AST 24 (14-36) U/L ALT 24 (4-34) U/L Alkaline Phosphatase 94 (38-126) U/L Total Protein 8.4 H (6.3-8.2) g/dL Albumin 4.7 (3.5-5.0) g/dL TSH 0.636 (0.465-4.680) mIU/L Urine Color Urine Appearance (Clear) Urine pH (5.0-8.0) Ur Specific [place] (1.001-1.035) Urine Protein (Negative) Urine Glucose (UA) (Negative) Urine Ketones (Negative) Urine Blood (Negative) Urine Nitrite (Negative) Urine Bilirubin (Negative) Urine Urobilinogen (<2.0) mg/dL Ur Leukocyte Esterase (Negative) Urine RBC (0-5) /hpf Urine WBC (0-5) /hpf Ur Squamous Epith Cells (0-4) /hpf Urine Bacteria (None) /hpf Urine Mucus (None) /hpf Urine HCG, Qual (Not Detectd) Disposition Decision Date: 11/30/21 Decision Time: 14:32 <Gigi Whitehead - Last Filed: 11/30/21 15:24> Is patient prescribed a controlled substance at d/c from ED?: No Time of Disposition: 18:03 <Butch Cyr - Last Filed: 11/30/21 18:03> Clinical Impression: Paresthesias, Lower extremity weakness Disposition: HOME SELF-CARE Condition: Good Referrals: Chidi Laird DO [Primary Care Provider] - 1-2 days
--- NOTE | 2021-11-30 14:00 | CT ---
EXAMINATION TYPE: CT brain wo con DATE OF EXAM: 11/30/2021 COMPARISON: 10/06/2017 HISTORY: generalized numbness and weankness CT DLP: 1180.[address] of the brain was performed. The ventricles, basal cisterns and sulci overlying the cerebral convexities demonstrate a normal appe arance. There is no evidence for intracranial hemorrhage or sulcal effacement. No mass effects are seen. Osseous calvarium is intact. If symptoms persist consider MRI as clinically warranted. IMPRESSION: 1. No acute intracranial process is seen at this time.
[2021-11-30 14:19] LABS: Basophils % (A) 0 %; Eosinophils # (A) 0.1 k/uL (0-0.7); Eosinophils % (A) 1 %; HCT 42.2 % (34.0-46.0); HGB 13.7 gm/dL (11.4-16.0); Lymphocytes # (A) 2.1 k/uL (1.0-4.8); Lymphocytes % (A) 25 %; MCH 28.6 pg (25.0-35.0); MCHC 32.4 g/dL (31.0-37.0); MCV 88.1 fL (80.0-100.0); Mean Platelet Volume 6.8; Monocytes # (A) 0.3 k/uL (0-1.0); Monocytes % (A) 3 %; Neutrophils # (A) 5.6 k/uL (1.3-7.7); Neutrophils % (A) 68 %; Platelet Count 342 k/uL (150-450); RBC 4.79 m/uL (3.80-5.40); RDW 14.1 % (11.5-15.5); WBC 8.3 k/uL (3.8-10.6)
[2021-11-30 14:21] LABS: Appearance,Urine Clear (Clear); Bacteria,Urine Occasional /hpf; Bilirubin,Urine Negative (Negative); Blood,Urine Negative (Negative); Color,Urine Light Yellow; Glucose,Urine (UA) Negative (Negative); Ketones,Urine Negative (Negative); Leukocyte Esterase,Urine Small (Negative); Mucus,Urine Rare /hpf; Nitrite,Urine Negative (Negative); Protein,Urine Negative (Negative); RBC,Urine 1 /hpf (0-5); Specific Gravity,Urine 1.008 (1.001-1.035); Squamous Epithelial Cell,Urine 1 /hpf (0-4); Urobilinogen,Urine <2.0 mg/dL (<2.0); WBC,Urine 1 /hpf (0-5)
[2021-11-30 14:37] LABS: ALT 24 U/L (4-34); AST 24 U/L (14-36); African American GFR (CKD) >90 (>60 ml/min/1.73 sqM); Albumin 4.7 g/dL (3.5-5.0); Alkaline Phosphatase 94 U/L (38-126); Anion Gap 12 mmol/L; Blood Urea Nitrogen 9 mg/dL (7-17); Calcium 9.4 mg/dL (8.4-10.2); Carbon Dioxide 23 mmol/L (22-30); Chloride 104 mmol/L (98-107); Glucose 82 mg/dL (74-99); Non-African American GFR(CKD) >90 (>60 ml/min/1.73 sqM); Potassium 3.7 mmol/L (3.5-5.1); Sodium 139 mmol/L (137-145); Total Bilirubin 0.9 mg/dL (0.2-1.3); Total Protein 8.4 g/dL (6.3-8.2)
[2021-11-30] MEDS ORDERED: NALOXONE 0.4 MG/ML 1 ML VIAL IV PRN (14:54)
[2021-11-30] MEDS ORDERED: ACETAMINOPHEN TAB 325 MG TAB PO PRN (14:54)
--- NOTE | 2021-11-30 16:21 | MR ---
EXAMINATION TYPE: MR brain/cspine wo/w DATE OF EXAM: 11/30/2021 COMPARISON: HISTORY: Numbness, tingling, rule out MS TECHNIQUE: Multiplanar, multisequence images of the brain and brainstem, cervical spine is performed without and with IV contrast, utilizing 10 mL intravenous Gadavist . FINDINGS: Diffusion weighted images demonstrate no evidence of a recent infarct or other diffusion ab normality. There is no extra-axial fluid collection or significant white matter signal abnormality. The ventricular system and cisternal spaces are normal in size and appearance. The brain volume is age appropriate. Midline structures demonstrate normal morphology. The craniocervical junction appears within normal limits. Post contrast images demonstrate no abnormal enhancement. The dural venous sinuses appear pa tent. The visualized sinuses are showing inflammatory change in the frontal, sphenoid and left maxill rebekah sinus and ethmoid air cells, and the globes are intact. Cervical spine is unremarkable. There is no evident spinal stenosis. Cervical cord signal is normal. There is no abnormal enhancement. No evident foraminal encroachment or disc herniation. Cervical vert ebral bodies show preserved height and alignment, bone marrow signal. Disc spaces are maintained. IMPRESSION: Sinus disease, normal brain and normal cervical spine MRI
--- NOTE | 2021-11-30 16:43 | P.CNNES ---
History of Present Illness Consult date: 11/30/21 Requesting physician: Gigi Whitehead Reason for Consult: Paresthesias, lower extremity weakness, vision changes History of Present Illness: Patient is a 26-year-old female who has history of migraine headaches, now presented with paresthesias of her arms and legs, and her "body feels off". Patient states that she has "ocular migraines" for last 2 years. They can occur from none to multiple times a week. Once the migraine starts, it lasts for a whole day. The pain usually is behind the eye, neck or the frontal region. It usually involves one or the other side. She gets nausea but no vomiting. She is very light sensitivity but slightly noise sensitive. She rates her headache 10/10, throbbing headache. She sometimes gets visual specks in her vision. Patient states that she has not tried any medication for migraines, she just tries to sleep it off. For the last couple months she has been experiencing some intermittent paresthesias of the hands. It has occurred about once every couple weeks or once a month. She describes that she has difficulty with grasping with hands and it would last usually overnight and goes away in the next day. Since Saturday, 4 days ago she has been experiencing some intermittent paresthesias of the lower extremities as well. It involves bilateral lower limbs, mainly the lower legs to the feet not as much involving the thigh region. Patient is somewhat vague regarding her description of these symptoms. The hand symptoms usually occurred overnight, but today it has been happening since the morning. It started last night when she was going to bed. When she woke up this morning the symptoms were still present. The symptoms continued to get worse while she was at work. She started feeling dizziness, specks in her vision but no headache. Her vision felt weird. She did not feel right. Also noticing the similar symptoms in the legs as described above. On asking about the balance, she states she does feel off balance but "I always have balance issues". On asking about bowel and bladder issues, patient states she "pees a lot". She has leaked urine couple weeks ago. She also states that since childbirth, she does have some bladder control issues. Patient also mentions about numbness involving the lower half of the face, mouth and the tongue since this morning. Patient denies any family history of MS. She works as a [employer] tell her. Denies any blood pressure diabetes. Patient smoked 1 pack per week for 4 years, quit in 2018. She drinks casually a few drinks on the weekend. Not a drinker. On occasion uses marijuana. Patient does not take any control pills. Patient's CBC, CMP, TSH are normal. Urine test negative. CT head normal. I personally reviewed. Review of Systems All 14 point review of system reviewed unremarkable except as mentioned in HPI. Past Medical History Past Medical History: No Reported History History of Any Multi-Drug Resistant Organisms: None Reported Past Surgical History: No Surgical Hx Reported Past Psychological History: Depression Smoking Status: Never smoker Past Alcohol Use History: Occasional Past Drug Use History: None Reported Medications and Allergies Home Medications Medication Instructions Recorded Confirmed Type Butalb/Acetaminophen/Caffeine 1 cap PO Q6HR PRN 3 Days #12 cap 11/30/21 Rx [Fioricet 50-300-40 mg Capsule] Allergies Allergy/AdvReac Type Severity Reaction Status Date / Time No Known Allergies Allergy Verified 11/30/21 12:43 Physical Examination - Vital Signs Vital Signs: Vital Signs Temp Pulse Resp BP Pulse Ox 11/30/21 11:26 98.6 F 72 16 124/70 99 Intake and Output 11/30/21 11/30/21 11/30/21 06:59 14:59 22:59 Other: Weight 99.79 kg Patient is a young female, in no acute distress. Patient is alert awake oriented to time place and person. Speech and language functions are normal. Attention, concentration and fund of knowledge is adequate. On cranial examination, pupils are round and reacting to light, visual umanzor are full on confrontation, extraocular muscles are intact with no nystagmus. Face is symmetric, tongue protrudes to the midline. Palatal elevation and sensation normal, hearing and shoulder shrug normal, facial sensation normal. Shoulder shrug normal. On muscle strength testing, there is no pronator drift and the strength is normal in arms and legs distally and proximally. Deep tendon reflexes are 1+ at the biceps and brachioradialis, 2 at the knees and ankles and plantars downgoing bilaterally. No clonus. Sensory to touch is equal with no neglect. Cerebellar function showed no ataxia for [id number] testing. No dysdiadochokinesia. Tone and bulk of muscles normal. Gait normal. On general examination, there is no carotid bruit or murmur, S1-S2 audible. Abdomen is soft nontender. Chest is clear. Peripheral pulses are present. No edema. Results - Laboratory Findings CBC and BMP: 11/30/21 14:09 11/30/21 14:09 Abnormal Lab Findings: Abnormal Labs 11/30/21 11/30/21 14:09 14:09 Total Protein 8.4 H Ur Leukocyte Esterase Small H Urine Bacteria Occasional H Urine Mucus Rare H Assessment and Plan Assessment: * Migraine headaches without aura. * Paresthesias of bilateral arms and legs, as well as lower facial region bilaterally. This does not follow any vascular distribution. Rule out COUNTER FORMER demyelinating disease like MS. Rule out B12 folate deficiency. Rule out carpal tunnel syndrome. Plan: * MRI of brain, cervical spine with and without contrast. * B12, folate. TSH is normal. * If above tests are normal, patient can be discharged home and follow up with neurologist for EMG of upper extremities. * Discussed case with ED staff. * Thank you for the consult. Addendum: MRI of brain and cervical spine with and without contrast are normal. No ev idence of demyelinating disease. Patient's TSH is normal. B12 and folate levels are still pending. We will empirically give her vitamin B12 injection 1000 g IM before discharge. Patient recommended to follow up with neurologist for EMG testing of upper and lower extremities to rule out carpal tunnel syndrome versus peripheral neuropathy. Patient will try Fioricet as needed for migraines. Neurologically clear for discharge. B12 445, folate 14.0, TSH 0.636.
[2021-11-30] MEDS ORDERED: CYANOCOBALAMIN 1,000 MCG/ML 1 ML VIAL IM ONE (17:33)
[2021-11-30 17:47] VITALS: BP 104/62; PULSE 80; RESP 18
--- NOTE | 2021-11-30 19:34 | ED ---
Medical Decision Making - Lab Data Result diagrams: 11/30/21 14:09 11/30/21 14:09 Lab Results 11/30/21 11/30/21 11/30/21 Range/Units 14:09 14:09 14:09 WBC 8.3 (3.8-10.6) k/uL RBC 4.79 (3.80-5.40) m/uL Hgb 13.7 (11.4-16.0) gm/dL Hct 42.2 (34.0-46.0) % MCV 88.1 (80.0-100.0) fL MCH 28.6 (25.0-35.0) pg MCHC 32.4 (31.0-37.0) g/dL RDW 14.1 (11.5-15.5) % Plt Count 342 (150-450) k/uL MPV 6.8 Neutrophils % 68 % Lymphocytes % 25 % Monocytes % 3 % Eosinophils % 1 % Basophils % 0 % Neutrophils # 5.6 (1.3-7.7) k/uL Lymphocytes # 2.1 (1.0-4.8) k/uL Monocytes # 0.3 (0-1.0) k/uL Eosinophils # 0.1 (0-0.7) k/uL Basophils # 0.0 (0-0.2) k/uL Sodium (137-145) mmol/L Potassium (3.5-5.1) mmol/L Chloride (98-107) mmol/L Carbon Dioxide (22-30) mmol/L Anion Gap mmol/L BUN (7-17) mg/dL Creatinine (0.52-1.04) mg/dL Est GFR (CKD-EPI)AfAm (>60 ml/min/1.73 sqM) Est GFR (CKD-EPI)NonAf (>60 ml/min/1.73 sqM) Glucose (74-99) mg/dL Calcium (8.4-10.2) mg/dL Total Bilirubin (0.2-1.3) mg/dL AST (14-36) U/L ALT (4-34) U/L Alkaline Phosphatase (38-126) U/L Total Protein (6.3-8.2) g/dL Albumin (3.5-5.0) g/dL TSH (0.465-4.680) mIU/L Urine Color Light Yellow Urine Appearance Clear (Clear) Urine pH 6.0 (5.0-8.0) Ur Specific Locke 1.008 (1.001-1.035) Urine Protein Negative (Negative) Urine Glucose (UA) Negative (Negative) Urine Ketones Negative (Negative) Urine Blood Negative (Negative) Urine Nitrite Negative (Negative) Urine Bilirubin Negative (Negative) Urine Urobilinogen <2.0 (<2.0) mg/dL Ur Leukocyte Esterase Small H (Negative) Urine RBC 1 (0-5) /hpf Urine WBC 1 (0-5) /hpf Ur Squamous Epith Cells 1 (0-4) /hpf Urine Bacteria Occasional H (None) /hpf Urine Mucus Rare H (None) /hpf Urine HCG, Qual Not Detected (Not Detectd) 11/30/21 11/30/21 Range/Units 14:09 14:09 WBC (3.8-10.6) k/uL RBC (3.80-5.40) m/uL Hgb (11.4-16.0) gm/dL Hct (34.0-46.0) % MCV (80.0-100.0) fL MCH (25.0-35.0) pg MCHC (31.0-37.0) g/dL RDW (11.5-15.5) % Plt Count (150-450) k/uL MPV Neutrophils % % Lymphocytes % % Monocytes % % Eosinophils % % Basophils % % Neutrophils # (1.3-7.7) k/uL Lymphocytes # (1.0-4.8) k/uL Monocytes # (0-1.0) k/uL Eosinophils # (0-0.7) k/uL Basophils # (0-0.2) k/uL Sodium 139 (137-145) mmol/L Potassium 3.7 (3.5-5.1) mmol/L Chloride 104 (98-107) mmol/L Carbon Dioxide 23 (22-30) mmol/L Anion Gap 12 mmol/L BUN 9 (7-17) mg/dL Creatinine 0.81 (0.52-1.04) mg/dL Est GFR (CKD-EPI)AfAm >90 (>60 ml/min/1.73 sqM) Est GFR (CKD-EPI)NonAf >90 (>60 ml/min/1.73 sqM) Glucose 82 (74-99) mg/dL Calcium 9.4 (8.4-10.2) mg/dL Total Bilirubin 0.9 (0.2-1.3) mg/dL AST 24 (14-36) U/L ALT 24 (4-34) U/L Alkaline Phosphatase 94 (38-126) U/L Total Protein 8.4 H (6.3-8.2) g/dL Albumin 4.7 (3.5-5.0) g/dL TSH 0.636 (0.465-4.680) mIU/L Urine Color Urine Appearance (Clear) Urine pH (5.0-8.0) Ur Specific Locke (1.001-1.035) Urine Protein (Negative) Urine Glucose (UA) (Negative) Urine Ketones (Negative) Urine Blood (Negative) Urine Nitrite (Negative) Urine Bilirubin (Negative) Urine Urobilinogen (<2.0) mg/dL Ur Leukocyte Esterase (Negative) Urine RBC (0-5) /hpf Urine WBC (0-5) /hpf Ur Squamous Epith Cells (0-4) /hpf Urine Bacteria (None) /hpf Urine Mucus (None) /hpf Urine HCG, Qual (Not Detectd) Disposition Clinical Impression: Paresthesias, Lower extremity weakness Disposition: HOME SELF-CARE Condition: Good Instructions (If sedation given, give patient instructions): Migraine Headache (ED), Paresthesia (ED) Prescriptions: Butalb/Acetaminophen/Caffeine [Fioricet 50-300-40 mg Capsule] 1 cap PO Q6HR PRN 3 Days #12 cap PRN Reason: Migraine Headache Is patient prescribed a controlled substance at d/c from ED?: Yes When asked, does pt state using other controlled substances?: No If prescribed controlled substance>3 days was MAPS reviewed?: Prescribed <3 Days If opioid is for acute pain is fill amount 7 days or less?: No If Rx opioid, was Start Talking consent form obtained?: No Referrals: Chidi Laird DO [Primary Care Provider] - 1-2 days
== END 2021-11-30 19:39 | disposition home or self-care (01) ==
LOC: EC 11:24 → UNDOADMOB 14:57 → 6NMEDSUR 14:57 → EC 19:39
DX: R53.1 Weakness (principal); R20.2 Paresthesia of skin
CPT/HCPCS: 99285; 96372; 36415; 80053; 84443; 82607; 82746; 85025; 81001; 81025; 70450; 70553; 72156; J3420; A9585

== ENCOUNTER 2022-07-04 16:48 | Emergency (ER) | payer BC, OTHER ==
[2022-07-04 17:41] VITALS: RESP 16
[2022-07-04] MEDS ORDERED: MORPHINE SULFATE 4 MG/ML SYRINGE IVP STA (22:30)
[2022-07-04] MEDS ORDERED: ONDANSETRON 4 MG/2 ML VIAL IVP STA (22:30)
[2022-07-04 22:36] LABS: Basophils % (A) 1 %; Eosinophils # (A) 0.1 k/uL (0-0.7); Eosinophils % (A) 2 %; HCT 41.1 % (34.0-46.0); Lymphocytes # (A) 1.2 k/uL (1.0-4.8); Lymphocytes % (A) 27 %; MCH 29.2 pg (25.0-35.0); Mean Platelet Volume 7.6; Monocytes # (A) 0.3 k/uL (0-1.0); Monocytes % (A) 6 %; Neutrophils # (A) 2.8 k/uL (1.3-7.7); Neutrophils % (A) 61 %; Platelet Count 238 k/uL (150-450); RBC 4.78 m/uL (3.80-5.40); RDW 13.2 % (11.5-15.5); WBC 4.6 k/uL (3.8-10.6)
[2022-07-04 23:03] LABS: ALT 37 U/L (4-34); AST 33 U/L (14-36); African American GFR (CKD) >90 (>60 ml/min/1.73 sqM); Albumin 4.6 g/dL (3.5-5.0); Alkaline Phosphatase 80 U/L (38-126); Anion Gap 11 mmol/L; Blood Urea Nitrogen 10 mg/dL (7-17); Calcium 9.3 mg/dL (8.4-10.2); Carbon Dioxide 22 mmol/L (22-30); Chloride 105 mmol/L (98-107); Glucose 137 mg/dL (74-99); Lipase 79 U/L (23-300); Non-African American GFR(CKD) >90 (>60 ml/min/1.73 sqM); Potassium 3.5 mmol/L (3.5-5.1); Sodium 138 mmol/L (137-145); Total Bilirubin 0.3 mg/dL (0.2-1.3); Total Protein 7.8 g/dL (6.3-8.2)
[2022-07-04] MEDS ORDERED: SODIUM CHLORIDE 0.9% 1,000 ML IV STA (23:07)
[2022-07-04 23:36] LABS: Appearance,Urine Clear (Clear); Bilirubin,Urine Negative (Negative); Blood,Urine Negative (Negative); Color,Urine Light Yellow; Glucose,Urine (UA) Negative (Negative); Ketones,Urine Negative (Negative); Leukocyte Esterase,Urine Negative (Negative); Nitrite,Urine Negative (Negative); Protein,Urine Negative (Negative); Specific Gravity,Urine 1.011 (1.001-1.035); Urobilinogen,Urine <2.0 mg/dL (<2.0)
--- NOTE | 2022-07-05 00:16 | US ---
EXAMINATION TYPE: US pelvic complete DATE OF EXAM: 07/04/2022 COMPARISON: NONE CLINICAL HISTORY: left pelvic pain, hx of ovarian cysts. left sided pelvic pain x 1 month. TECHNIQUE: . Transabdominal sonographic images of the pelvis were acquired. Date of LMP: 06/20/22 EXAM MEASUREMENTS: Uterus: 8.2 x 6.0 x 4.4 cm Endometrial Stripe: 0.8 cm Right Ovary: 3.6 x 3.4 x 2.3 cm Left Ovary: 3.2 x 2.0 x 2.1 cm 1. Uterus: Anteverted wnl 2. Endometrium: wnl 3. Right Ovary: wnl 4. Left Ovary: wnl Spectral, color and waveform doppler imaging shows good arterial and venous flow within the ovaries ; there is no evidence for ovarian torsion. 5. Bilateral Adnexa: wnl 6. Posterior cul-de-sac: wnl IMPRESSION: No adnexal mass or free fluid. No evidence of ovarian torsion.
--- NOTE | 2022-07-05 01:12 | ED ---
Abdominal Pain HPI - General Chief Complaint: Abdominal Pain Stated Complaint: stomach pain Time Seen by Provider: 07/04/22 21:47 Source: patient Mode of arrival: ambulatory Limitations: no limitations - History of Present Illness Initial Comments: Patient is a 27-year-old female who presents to the emergency department with a chief complaint of abdominal pain. Patient states pain has been occurring intermittently for the past month and getting worse. Reports significant cramping in her left lower abdomen. Patient does have history of ovarian cysts and states this feels similar. Also has history of endometriosis. Patient concerned that she has an ectopic . She is a A0 female. Currently on oral contraception. She reports intermittent nausea and occasional vomiting, nonbloody. She denies fever, chills, constipation, diarrhea, burning with urination, blood in urine, vaginal discharge. Patient does not have concern for sexually transmitted infection. Patient reports normal menstrual periods every month, lasting about 5 days, heavy flow. Last menstrual period a couple weeks ago. - Related Data Previous Rx's Medication Instructions Recorded Butalb/Acetaminophen/Caffeine 1 cap PO Q6HR PRN 3 Days #12 cap 11/30/21 [Fioricet 50-300-40 mg Capsule] Ibuprofen [Motrin] 800 mg PO Q8HR PRN #30 tab 07/05/22 Ondansetron Odt [Zofran Odt] 4 mg PO Q8HR PRN #10 tab 07/05/22 Allergies Allergy/AdvReac Type Severity Reaction Status Date / Time No Known Allergies Allergy Verified 07/04/22 17:41 Review of Systems ROS Statement: Those systems with pertinent positive or pertinent negative responses have been documented in the HPI. ROS Other: All systems not noted in ROS Statement are negative. Past Medical History Past Medical History: No Reported History History of Any Multi-Drug Resistant Organisms: None Reported Past Surgical History: No Surgical Hx Reported Past Psychological History: Depression Smoking Status: Never smoker Past Alcohol Use History: Occasional Past Drug Use History: None Reported General Exam Limitations: no limitations General appearance: alert, in no apparent distress Head exam: Present: atraumatic, normocephalic, normal inspection Eye exam: Present: normal appearance, PERRL, EOMI. Absent: scleral icterus, conjunctival injection, periorbital swelling Respiratory exam: Present: normal lung sounds bilaterally. Absent: respiratory distress, wheezes, rales, rhonchi, stridor Cardiovascular Exam: Present: regular rate, normal rhythm, normal heart sounds. Absent: systolic murmur, diastolic murmur, rubs, gallop, clicks GI/Abdominal exam: Present: soft, tenderness (Mild left lower quadrant), normal bowel sounds. Absent: distended, guarding, rebound, rigid Neurological exam: Present: alert, oriented X3, CN II-XII intact Psychiatric exam: Present: normal affect, normal mood Skin exam: Present: warm, dry, intact, normal color. Absent: rash Course Vital Signs 07/04/22 07/04/22 07/05/22 17:39 22:46 02:04 Temperature 98 F 97.9 F Pulse Rate 80 80 65 Respiratory 16 16 16 Rate Blood Pressure 120/64 117/79 103/69 O2 Sat by Pulse 100 100 97 Oximetry Medical Decision Making - Medical Decision Making This is 27-year-old female presenting with abdominal pain, nausea, vomiting. Patient is well-appearing and in no apparent distress. Vitals are within normal limits. Laboratory studies obtained. There is no leukocytosis. Lactic acid is elevated at 2.7. HCG is not detected. Urinalysis does not reveal blood or infection.Pelvic ultrasound obtained and interpreted by me which shows a normal left ovary and adnexa. There is no adnexal mass or free fluid, no evidence of ovarian torsion or cyst. Pain and nausea controlled. With normal ultrasound I then obtained CT of the abdomen and pelvis with contrast. This was interpreted by me which shows a normal appendix, normal kidneys, and no acute process. Results discussed with patient. At this time there are no diagnostic studies to explain patient's symptoms. Possibly related to endometriosis. Patient to follow-up with her instructional technology coordinator. I will send patient home with pain and nausea medication. Dr. Bartlett is my attending. - Lab Data Result diagrams: 07/04/22 22:14 07/04/22 22:14 Lab Results 07/04/22 07/04/22 07/04/22 Range/Units 22:14 22:14 22:14 WBC 4.6 (3.8-10.6) k/uL RBC 4.78 (3.80-5.40) m/uL Hgb 14.0 (11.4-16.0) gm/dL Hct 41.1 (34.0-46.0) % MCV 86.0 (80.0-100.0) fL MCH 29.2 (25.0-35.0) pg MCHC 34.0 (31.0-37.0) g/dL RDW 13.2 (11.5-15.5) % Plt Count 238 (150-450) k/uL MPV 7.6 Neutrophils % 61 % Lymphocytes % 27 % Monocytes % 6 % Eosinophils % 2 % Basophils % 1 % Neutrophils # 2.8 (1.3-7.7) k/uL Lymphocytes # 1.2 (1.0-4.8) k/uL Monocytes # 0.3 (0-1.0) k/uL Eosinophils # 0.1 (0-0.7) k/uL Basophils # 0.0 (0-0.2) k/uL Sodium 138 (137-145) mmol/L Potassium 3.5 (3.5-5.1) mmol/L Chloride 105 (98-107) mmol/L Carbon Dioxide 22 (22-30) mmol/L Anion Gap 11 mmol/L BUN 10 (7-17) mg/dL Creatinine 0.77 (0.52-1.04) mg/dL Est GFR (CKD-EPI)AfAm >90 (>60 ml/min/1.73 sqM) Est GFR (CKD-EPI)NonAf >90 (>60 ml/min/1.73 sqM) Glucose 137 H (74-99) mg/dL Lactic Ac Sepsis Rflx Plasma Lactic Acid Roger 2.7 H* (0.7-2.0) mmol/L Calcium 9.3 (8.4-10.2) mg/dL Total Bilirubin 0.3 (0.2-1.3) mg/dL AST 33 (14-36) U/L ALT 37 H (4-34) U/L Alkaline Phosphatase 80 (38-126) U/L Total Protein 7.8 (6.3-8.2) g/dL Albumin 4.6 (3.5-5.0) g/dL Lipase 79 (23-300) U/L HCG, Qual Urine Color Urine Appearance (Clear) Urine pH (5.0-8.0) Ur Specific Jewell (1.001-1.035) Urine Protein (Negative) Urine Glucose (UA) (Negative) Urine Ketones (Negative) Urine Blood (Negative) Urine Nitrite (Negative) Urine Bilirubin (Negative) Urine Urobilinogen (<2.0) mg/dL Ur Leukocyte Esterase (Negative) 07/04/22 07/04/22 07/04/22 Range/Units 22:14 23:05 23:11 WBC (3.8-10.6) k/uL RBC (3.80-5.40) m/uL Hgb (11.4-16.0) gm/dL Hct (34.0-46.0) % MCV (80.0-100.0) fL MCH (25.0-35.0) pg MCHC (31.0-37.0) g/dL RDW (11.5-15.5) % Plt Count (150-450) k/uL MPV Neutrophils % % Lymphocytes % % Monocytes % % Eosinophils % % Basophils % % Neutrophils # (1.3-7.7) k/uL Lymphocytes # (1.0-4.8) k/uL Monocytes # (0-1.0) k/uL Eosinophils # (0-0.7) k/uL Basophils # (0-0.2) k/uL Sodium (137-145) mmol/L Potassium (3.5-5.1) mmol/L Chloride (98-107) mmol/L Carbon Dioxide (22-30) mmol/L Anion Gap mmol/L BUN (7-17) mg/dL Creatinine (0.52-1.04) mg/dL Est GFR (CKD-EPI)AfAm (>60 ml/min/1.73 sqM) Est GFR (CKD-EPI)NonAf (>60 ml/min/1.73 sqM) Glucose (74-99) mg/dL Lactic Ac Sepsis Rflx Y Plasma Lactic Acid Roger (0.7-2.0) mmol/L Calcium (8.4-10.2) mg/dL Total Bilirubin (0.2-1.3) mg/dL AST (14-36) U/L ALT (4-34) U/L Alkaline Phosphatase (38-126) U/L Total Protein (6.3-8.2) g/dL Albumin (3.5-5.0) g/dL Lipase (23-300) U/L HCG, Qual Not Detected Urine Color Light Yellow Urine Appearance Clear (Clear) Urine pH 6.0 (5.0-8.0) Ur Specific Jewell 1.011 (1.001-1.035) Urine Protein Negative (Negative) Urine Glucose (UA) Negative (Negative) Urine Ketones Negative (Negative) Urine Blood Negative (Negative) Urine Nitrite Negative (Negative) Urine Bilirubin Negative (Negative) Urine Urobilinogen <2.0 (<2.0) mg/dL Ur Leukocyte Esterase Negative (Negative) Disposition Clinical Impression: Left lower quadrant abdominal pain, Nausea and vomiting Disposition: HOME SELF-CARE Condition: Good Instructions (If sedation given, give patient instructions): Endometriosis (ED), Abdominal Pain (ED) Additional Instructions: Take medication as directed. Follow-up with instructional technology coordinator and primary care provider in 1-2 days. Return to the emergency department experience new, concerning, or worsening symptoms. Prescriptions: Ibuprofen [Motrin] 800 mg PO Q8HR PRN #30 tab PRN Reason: Pain Ondansetron Odt [Zofran Odt] 4 mg PO Q8HR PRN #10 tab PRN Reason: Nausea Is patient prescribed a controlled substance at d/c from ED?: No Referrals: Chidi Laird DO [Primary Care Provider] - 1-2 days Time of Disposition: 01:41
--- NOTE | 2022-07-05 01:35 | CT ---
EXAMINATION TYPE: CT abdomen pelvis w con DATE OF EXAM: 07/05/2022 COMPARISON: 09/29/2017 HISTORY: LLQ pain CT DLP: 1590.7 mGycm Automated exposure control for dose reduction was used. CONTRAST: Performed with IV Contrast, patient injected with 100 mL of Isovue 370. Images obtained from the diaphragm to the floor of the pelvis with the IV contrast. The lung bases are clear. No pleural effusion. Heart size is normal. No pericardial effusion. Liver spleen and stomach pancreas gallbladder appear intact. The bile duct are not dilated. There is no adrenal mass. Kidneys show satisfactory contrast opacification. There is no hydronephrosi s. No retroperitoneal adenopathy. Appendix is posterior and lateral and appears normal. Bladder distends smoothly. Urinary bladder is almost empty. No inguinal hernia. The uterus is antever valdemar. No pelvic mass. No free fluid in the pelvis. The lumbar vertebrae have normal spacing and alignment. Posterior elements are intact. No compression fracture. The hip joints are intact. Hip joint spaces are normal. Sacroiliac joints are intact. There is no mesenteric edema. No ascites or free air. No sign of a bowel obstruction. There is 1 x 3 cm fat-containing umbilical hernia. IMPRESSION: Normal appendix. I do not see a cause for left flank pain. There is clearing of the dominant right-sided ovarian cyst to large extent compared to old exam.
[2022-07-05] MEDS ORDERED: METOCLOPRAMIDE 5 MG/ML 2 ML VIAL IVP STA (01:37)
[2022-07-05] MEDS ORDERED: HYDROmorphone 0.5 MG/0.5 ML SYRINGE IVP STA (01:38)
[2022-07-05] MEDS ORDERED: KETOROLAC 15 MG/ML 1 ML VIAL IVP STA (01:38)
[2022-07-05] MEDS ORDERED: ACET/COD 300 MG/30 MG STARTER PACK 6 TAB BTL PO STA (01:40)
[2022-07-05 02:05] VITALS: BP 103/69; PULSE 65; TEMP 97.9
== END 2022-07-05 02:26 | disposition home or self-care (01) ==
LOC: EC 16:48
DX: R10.32 Left lower quadrant pain (principal); R11.2 Nausea with vomiting, unspecified; F32.A Depression, unspecified
CPT/HCPCS: 36415; 80053; 83605; 83690; 85025; 81003; 84703; 93975; 76856; 74177; 99284; 96374; 96375 ×4; 96361 ×2; J2270; J2765; J2405; J1885; J1170; Q9967

== ENCOUNTER 2022-11-16 10:38 | Emergency (ER) | payer OTHER ==
[2022-11-16 10:52] VITALS: TEMP 98.6
--- NOTE | 2022-11-16 11:01 | ED ---
Abdominal Pain HPI - General Chief Complaint: Abdominal Pain Stated Complaint: Abd Pain,Vomiting Time Seen by Provider: 11/16/22 10:54 Source: patient Mode of arrival: ambulatory Limitations: no limitations - History of Present Illness Initial Comments: This is a nontoxic-appearing 27-year-old female that presents to the emergency room with complaints of 5 months of left lower quadrant abdominal pain. States has been in the hospital multiple times with no definitive diagnosis. She was directed to follow up with Dr. Meade but due to insurance problems has not been able to make that appointment. Patient describes this left lower quadrant pain as burning radiates into her back. States she's been having multiple episodes of nausea vomiting but only once today white in color. Normal bowel movement yesterday. Does have occasional constipation and diarrhea. Does not take any medicines on a daily basis. Smokes marijuana occasionally and is a social drinker. MD Complaint: abdominal pain -: month(s) (5) Location: LLQ Radiation: back Quality: burning Consistency: intermittent Improves With: nothing Worsens With: nothing Associated Symptoms: nausea, vomiting, diarrhea, constipation - Related Data LMP (females 10-50): this week Previous Rx's Medication Instructions Recorded Dicyclomine [Bentyl] 20 mg PO TID #30 tablet 11/16/22 Famotidine [Pepcid] 20 mg PO BID #28 tablet 11/16/22 Allergies Allergy/AdvReac Type Severity Reaction Status Date / Time No Known Allergies Allergy Verified 11/16/22 11:29 Review of Systems ROS Statement: Those systems with pertinent positive or pertinent negative responses have been documented in the HPI. ROS Other: All systems not noted in ROS Statement are negative. Past Medical History Past Medical History: No Reported History History of Any Multi-Drug Resistant Organisms: None Reported Past Surgical History: No Surgical Hx Reported Past Psychological History: Depression Smoking Status: Former smoker Past Alcohol Use History: Occasional Past Drug Use History: Marijuana General Exam Limitations: no limitations General appearance: alert, in no apparent distress Head exam: Present: atraumatic Eye exam: Present: normal appearance. Absent: scleral icterus, conjunctival injection, periorbital swelling, periorbital tenderness ENT exam: Present: mucous membranes moist Neck exam: Present: full ROM. Absent: tenderness, meningismus Respiratory exam: Present: normal lung sounds bilaterally. Absent: respiratory distress, accessory muscle use Cardiovascular Exam: Present: regular rate GI/Abdominal exam: Present: soft. Absent: distended, tenderness, guarding, rebound, rigid Extremities exam: Present: full ROM, normal capillary refill. Absent: tenderness, pedal edema, calf tenderness Back exam: Present: full ROM. Absent: tenderness, CVA tenderness (R), CVA tenderness (L), rash noted Neurological exam: Present: alert, oriented X3, normal gait Psychiatric exam: Present: normal affect, normal mood Skin exam: Present: warm, dry, normal color. Absent: cyanosis, diaphoretic, erythema, petechiae, pallor, mottled Course Vital Signs 11/16/22 11/16/22 11/16/22 10:50 11:14 12:50 Temperature 98.6 F Pulse Rate 82 80 68 Respiratory 18 16 16 Rate Blood Pressure 124/82 128/84 140/60 O2 Sat by Pulse 99 99 98 Oximetry Medical Decision Making - Medical Decision Making Patient presents with left lower quadrant pain since June. Has had multiple CT scans and ultrasounds with no definitive diagnosis. She has a history of endometriosis, polycystic ovarian syndrome. I did review the CTs 09/17/2022 which was negative 07/05/2022 showing a clearing of a right ovarian cyst, 07/04/2022 pelvic ultrasound negative. Today CBC and electrolytes are unremarkable. Patient is currently on her menses. Urinalysis shows no evidence of infection. On physical exam abdomen is soft and nontender. Patient is afebrile. Vital signs are stable. Patient has been seen multiple times in the emergency room for this same pain over past several months. Patient has been given referral to Dr. Lopez and was directed to continue to try and schedule that appointment. Also directed to follow up with her primary care doctor which she states was discharged from his service by certified mail. She was given 2 referrals for primary care. She was also given Pepcid and Bentyl. She is agreeable to discharge. Strict return parameters were discussed. Case discussed with Dr. Kirk Was pt. sent in by a medical professional or institution (, PA, LICENSED AND CERTIFIED MIDWIFE, urgent care, hospital, or custodial...) When possible be specific @ -No Did you speak to anyone other than the patient for history (EMS, parent, family, police, friend...)? What history was obtained from this source @ -No Did you review nursing and triage notes (agree or disagree)? Why? @ -I reviewed and agree with nursing and triage notes Were old charts reviewed (outside hosp., previous admission, EMS record, old EKG, old radiological studies, urgent care reports/EKG's, custodial records)? Report findings @ -Yes as above Differential Diagnosis (chest pain, altered mental status, abdominal pain women, abdominal pain men, vaginal bleeding, weakness, fever, dyspnea, syncope, heada jonah, dizziness, GI bleed, back pain, seizure, CVA, palpatations, mental health, musculoskeletal)? @ -Differential Abdominal Pain Women: Appendicitis, Cholecystitis, diverticulosis, ischemic bowel, pancreatitis, hepatitis, UTI, gastroenteritis, AAA, incarcerated hernia, bowel obstruction, constipation, inflammatory bowel, hepatitis, peptic ulcer disease, splenic infarction, perforated viscus, vulvitis, ovarian torsion, PID, kidney stone, placenta abruption, this is not meant to be an all-inclusive list EKG interpreted by me (3pts min.). @ -n/a X-rays interpreted by me (1pt min.). @ -None done CT interpreted by me (1pt min.). @ -None done U/S interpreted by me (1pt. min.). @ -None done What testing was considered but not performed or refused? (CT, X-rays, U/S, labs)? Why? @ -None What meds were considered but not given or refused? Why? @ -None Did you discuss the management of the patient with other professionals (kaitlin haynes i.e. , PA, LICENSED AND CERTIFIED MIDWIFE, lab, RT, psych nurse, renal social worker, bolt labeler, teacher, morals squad police officer, case manager specialist)? Give summary @ -No Was smoking cessation discussed for >3mins.? @ -No Was critical care preformed (if so, how long)? @ -No Were there social determinants of health that impacted care today? How? (Homelessness, low income, unemployed, alcoholism, drug addiction, transportation, low edu. Level, literacy, decrease access to med. care, senior care, rehab)? @ -No Was there de-escalation of care discussed even if they declined (Discuss DNR or withdrawal of care, Hospice)? DNR status @ -No What co-morbidities impacted this encounter? (DM, HTN, Smoking, COPD, CAD, Cancer, CVA, ARF, Chemo, Hep., AIDS, mental health diagnosis, sleep apnea, morbid obesity)? @ -Polycystic ovarian syndrome Was patient admitted / discharged? Hospital course, mention meds given and route, prescriptions, significant lab abnormalities, going to OR and other pertinent info. @ -Discharged Undiagnosed new problem with uncertain prognosis? @ -No Drug Therapy requiring intensive monitoring for toxicity (Heparin, Nitro, Insulin, Cardizem)? @ -No Were any procedures done? @ -No Diagnosis/symptom? @ -abdominal pain Acute, or Chronic, or Acute on Chronic? @ -chronic Uncomplicated (without systemic symptoms) or Complicated (systemic symptoms)? @ -Uncomplicated Side effects of treatment? @ -No Exacerbation, Progression, or Severe Exacerbation? @ -No Poses a threat to life or bodily function? How? (Chest pain, [place], [place], pneumonia, PE, COPD, DKA, ARF, appy, cholecystitis, CVA, Diverticulitis, Homicidal, Suicidal, threat to staff... and all critical care pts) @ -No - Lab Data Result diagrams: 11/16/22 11:17 11/16/22 11:17 Lab Results 11/16/22 11/16/22 11/16/22 Range/Units 11:17 11:17 11:17 WBC 6.3 (3.8-10.6) k/uL RBC 4.90 (3.80-5.40) m/uL Hgb 13.9 (11.4-16.0) gm/dL Hct 41.9 (34.0-46.0) % MCV 85.5 (80.0-100.0) fL MCH 28.3 (25.0-35.0) pg MCHC 33.1 (31.0-37.0) g/dL RDW 13.7 (11.5-15.5) % Plt Count 355 (150-450) k/uL MPV 7.2 Neutrophils % 64 % Lymphocytes % 26 % Monocytes % 4 % Eosinophils % 4 % Basophils % 0 % Neutrophils # 4.0 (1.3-7.7) k/uL Lymphocytes # 1.7 (1.0-4.8) k/uL Monocytes # 0.3 (0-1.0) k/uL Eosinophils # 0.3 (0-0.7) k/uL Basophils # 0.0 (0-0.2) k/uL Sodium 140 (137-145) mmol/L Potassium 4.1 (3.5-5.1) mmol/L Chloride 103 (98-107) mmol/L Carbon Dioxide 27 (22-30) mmol/L Anion Gap 10 mmol/L BUN 10 (7-17) mg/dL Creatinine 0.78 (0.52-1.04) mg/dL Est GFR (CKD-EPI)AfAm >90 (>60 ml/min/1.73 sqM) Est GFR (CKD-EPI)NonAf >90 (>60 ml/min/1.73 sqM) Glucose 97 (74-99) mg/dL Calcium 9.6 (8.4-10.2) mg/dL Total Bilirubin 0.5 (0.2-1.3) mg/dL AST 20 (14-36) U/L ALT 24 (4-34) U/L Alkaline Phosphatase 84 (38-126) U/L Total Protein 7.9 (6.3-8.2) g/dL Albumin 4.5 (3.5-5.0) g/dL Amylase 57 (30-110) U/L Lipase 110 (23-300) U/L Urine Color Yellow Urine Appearance Clear (Clear) Urine pH 6.0 (5.0-8.0) Ur Specific [place] 1.022 (1.001-1.035) Urine Protein Negative (Negative) Urine Glucose (UA) Negative (Negative) Urine Ketones Negative (Negative) Urine Blood Moderate H (Negative) Urine Nitrite Negative (Negative) Urine Bilirubin Negative (Negative) Urine Urobilinogen <2.0 (<2.0) mg/dL Ur Leukocyte Esterase Negative (Negative) Urine RBC <1 (0-5) /hpf Urine WBC 1 (0-5) /hpf Ur Squamous Epith Cells 3 (0-4) /hpf Hyaline Casts 1 (0-2) /lpf Urine Mucus Rare H (None) /hpf Disposition Clinical Impression: Abdominal pain Disposition: HOME SELF-CARE Condition: Good Instructions (If sedation given, give patient instructions): Abdominal Pain (ED) Additional Instructions: Follow-up with Dr. Lopez and your primary care doctor for continuation of care. Take Pepcid twice a day. Take Bentyl as prescribed. Take Zofran as needed for nausea. Prescriptions: Dicyclomine [Bentyl] 20 mg PO TID #30 tablet Famotidine [Pepcid] 20 mg PO BID #28 tablet Is patient prescribed a controlled substance at d/c from ED?: No Referrals: None,Stated [Primary Care Provider] - 1-2 days Herbert Almaguer MD [REFERRING] - 1-2 days Kathi Patten MD [STAFF PHYSICIAN] - 1-2 days Time of Disposition: 12:14
[2022-11-16 11:15] VITALS: RESP 16
[2022-11-16 11:46] LABS: Basophils % (A) 0 %; Eosinophils # (A) 0.3 k/uL (0-0.7); Eosinophils % (A) 4 %; HCT 41.9 % (34.0-46.0); HGB 13.9 gm/dL (11.4-16.0); Lymphocytes # (A) 1.7 k/uL (1.0-4.8); Lymphocytes % (A) 26 %; MCH 28.3 pg (25.0-35.0); MCHC 33.1 g/dL (31.0-37.0); MCV 85.5 fL (80.0-100.0); Mean Platelet Volume 7.2; Monocytes # (A) 0.3 k/uL (0-1.0); Monocytes % (A) 4 %; Neutrophils % (A) 64 %; Platelet Count 355 k/uL (150-450); RDW 13.7 % (11.5-15.5); WBC 6.3 k/uL (3.8-10.6)
[2022-11-16 11:50] LABS: ALT 24 U/L (4-34); AST 20 U/L (14-36); African American GFR (CKD) >90 (>60 ml/min/1.73 sqM); Albumin 4.5 g/dL (3.5-5.0); Alkaline Phosphatase 84 U/L (38-126); Amylase 57 U/L (30-110); Anion Gap 10 mmol/L; Blood Urea Nitrogen 10 mg/dL (7-17); Calcium 9.6 mg/dL (8.4-10.2); Carbon Dioxide 27 mmol/L (22-30); Chloride 103 mmol/L (98-107); Glucose 97 mg/dL (74-99); Lipase 110 U/L (23-300); Non-African American GFR(CKD) >90 (>60 ml/min/1.73 sqM); Potassium 4.1 mmol/L (3.5-5.1); Sodium 140 mmol/L (137-145); Total Bilirubin 0.5 mg/dL (0.2-1.3); Total Protein 7.9 g/dL (6.3-8.2)
[2022-11-16 11:52] LABS: Appearance,Urine Clear (Clear); Bilirubin,Urine Negative (Negative); Blood,Urine Moderate (Negative); Color,Urine Yellow; Glucose,Urine (UA) Negative (Negative); Hyaline Casts,Urine 1 /lpf (0-2); Ketones,Urine Negative (Negative); Leukocyte Esterase,Urine Negative (Negative); Mucus,Urine Rare /hpf; Nitrite,Urine Negative (Negative); Protein,Urine Negative (Negative); RBC,Urine <1 /hpf (0-5); Specific Gravity,Urine 1.022 (1.001-1.035); Squamous Epithelial Cell,Urine 3 /hpf (0-4); Urobilinogen,Urine <2.0 mg/dL (<2.0); WBC,Urine 1 /hpf (0-5)
[2022-11-16] MEDS ORDERED: FAMOTIDINE 20 MG/2 ML VIAL IV STA (11:57)
[2022-11-16] MEDS ORDERED: ONDANSETRON 4 MG/2 ML VIAL IVP STA (11:57)
[2022-11-16] MEDS ORDERED: ONDANSETRON 4 MG ODT STARTER PACK 2 TAB BTL PO STA (12:13)
[2022-11-16 12:51] VITALS: BP 140/60; PULSE 68
== END 2022-11-16 12:51 | disposition home or self-care (01) ==
LOC: EC 10:38
DX: R10.32 Left lower quadrant pain (principal); F32.A Depression, unspecified; F12.90 Cannabis use, unspecified, uncomplicated; Z87.891 Personal history of nicotine dependence
CPT/HCPCS: 36415; 80053; 82150; 83690; 85025; 81001; 99284; 96374; 96375; J2405; S0119

== ENCOUNTER 2023-03-30 09:34 | Emergency (ER) | payer OTHER ==
[2023-03-30 09:40] VITALS: TEMP 98.4
[2023-03-30 10:18] LABS: Appearance,Urine Cloudy (Clear); Bacteria,Urine Few /hpf; Bilirubin,Urine Negative (Negative); Blood,Urine Small (Negative); Color,Urine Yellow; Glucose,Urine (UA) Negative (Negative); Ketones,Urine Negative (Negative); Leukocyte Esterase,Urine Large (Negative); Mucus,Urine Many /hpf; Nitrite,Urine Negative (Negative); Protein,Urine Trace (Negative); RBC,Urine 3 /hpf (0-5); Specific Gravity,Urine 1.032 (1.001-1.035); Squamous Epithelial Cell,Urine 29 /hpf (0-4); Urobilinogen,Urine <2.0 mg/dL (<2.0); WBC,Urine 32 /hpf (0-5)
[2023-03-30] MEDS ORDERED: DICYCLOMINE 10 MG/ML 2 ML AMP IM STA (10:29)
[2023-03-30] MEDS ORDERED: SODIUM CHLORIDE 0.9% 1,000 ML IV STA (10:29)
[2023-03-30] MEDS ORDERED: ONDANSETRON 4 MG/2 ML VIAL IVP STA (10:29)
--- NOTE | 2023-03-30 11:29 | ED ---
Nausea/Vomiting/Diarrhea HPI - General Chief complaint: Nausea/Vomiting/Diarrhea Stated complaint: Vomiting Time Seen by Provider: 03/30/23 10:20 Source: patient, RN notes reviewed Mode of arrival: ambulatory Limitations: no limitations - History of Present Illness Initial comments: Patient is a 28 year old female presents to the emergency room with complaints of generalized abdominal pain which she reports is cramping like in nature which begins in the left lower quadrant and radiates upward into the left upper quadrant near her "spleen." She reports nausea and vomiting with the inability fluids down however her vital signs are stable with no hypotension or tachycardia and dry mucous membranes. She reports that this has been ongoing sy mptom for approximately 1 year and she is established with GI who advised her her symptoms were consistent with irritable bowel syndrome however she is concerned that something else is going on but has not followed up with them further. She denies any other complaints or concerns including any chest pain, shortness of breath, bladder mucus in her emesis, diarrhea, changes in stool pattern, unintentional weight loss, dysuria, hematuria, fevers or chills. Her past medical history as listed below was reviewed. - Related Data Previous Rx's Medication Instructions Recorded Dicyclomine [Bentyl] 20 mg PO TID #30 tablet 11/16/22 Famotidine [Pepcid] 20 mg PO BID #28 tablet 11/16/22 Metoclopramide HCl [Reglan] 5 mg PO BID 30 Days #60 tablet 03/30/23 Allergies Allergy/AdvReac Type Severity Reaction Status Date / Time No Known Allergies Allergy Verified 03/30/23 09:40 Review of Systems ROS Statement: Those systems with pertinent positive or pertinent negative responses have been documented in the HPI. ROS Other: All systems not noted in ROS Statement are negative. Past Medical History Past Medical History: No Reported History History of Any Multi-Drug Resistant Organisms: None Reported Past Surgical History: No Surgical Hx Reported Past Psychological History: Depression Smoking Status: Former smoker Past Alcohol Use History: Occasional Past Drug Use History: Marijuana General Exam Limitations: no limitations General appearance: alert, in no apparent distress, obese Head exam: Present: atraumatic, normocephalic, normal inspection Eye exam: Present: normal appearance, PERRL, EOMI. Absent: scleral icterus, conjunctival injection, periorbital swelling ENT exam: Present: normal exam, mucous membranes moist Neck exam: Present: normal inspection, full ROM Respiratory exam: Present: normal lung sounds bilaterally. Absent: respiratory distress, wheezes, rales, rhonchi, stridor Cardiovascular Exam: Present: regular rate, normal rhythm, normal heart sounds. Absent: systolic murmur, diastolic murmur, rubs, gallop, clicks GI/Abdominal exam: Present: soft, normal bowel sounds. Absent: distended, t enderness, guarding, rebound, rigid Extremities exam: Present: normal inspection. Absent: pedal edema, joint swelling Back exam: Present: normal inspection Neurological exam: Present: alert, oriented X3, CN II-XII intact Psychiatric exam: Present: normal affect, normal mood Skin exam: Present: warm, dry, intact, normal color. Absent: rash Course Vital Signs 03/30/23 03/30/23 03/30/23 09:38 11:33 13:44 Temperature 98.4 F Pulse Rate 81 76 81 Respiratory 20 18 18 Rate Blood Pressure 107/75 99/62 104/61 O2 Sat by Pulse 98 100 97 Oximetry Medical Decision Making - Medical Decision Making Was pt. sent in by a medical professional or institution (, PA, SET UP MACHINIST, urgent care, hospital, or halfway...) When possible be specific @ -No Did you speak to anyone other than the patient for history (EMS, parent, family, police, friend...)? What history was obtained from this source @ -No Did you review nursing and triage notes (agree or disagree)? Why? @ -I reviewed and agree with nursing and triage notes Were old charts reviewed (outside hosp., previous admission, EMS record, old EKG, old radiological studies, urgent care reports/EKG's, halfway records)? Report findings @ -No old charts were reviewed Differential Diagnosis (chest pain, altered mental status, abdominal pain women, abdominal pain men, vaginal bleeding, weakness, fever, dyspnea, syncope, headache, dizziness, GI bleed, back pain, seizure, CVA, palpatations, mental health, musculoskeletal)? @ -Differential Abdominal Pain Women: Appendicitis, Cholecystitis, diverticulosis, ischemic bowel, pancreatitis, hepatitis, UTI, gastroenteritis, AAA, incarcerated hernia, bowel obstruction, constipation, inflammatory bowel, hepatitis, peptic ulcer disease, splenic infarction, perforated viscus, vulvitis, ovarian torsion, PID, kidney stone, placenta abruption, this is not meant to be an all-inclusive list EKG interpreted by me (3pts min.). @ -None done X-rays interpreted by me (1pt min.). @ -None done CT interpreted by me (1pt min.). @ -None done U/S interpreted by me (1pt. min.). @ -None done What testing was considered but not performed or refused? (CT, X-rays, U/S, labs)? Why? @ -Imaging of the abdomen considered but deferred due to previous computed tomography scan with same symptoms at the time of previous computed tomography scan with no changes compared to today's visit. What meds were considered but not given or refused? Why? @ -None Did you discuss the management of the patient with other professionals (professionals i.e. , PA, SET UP MACHINIST, lab, RT, psych nurse, 7th grade social studies teacher, weapons electrical engineering officer, teacher, credit risk review officer, field nurse case manager)? Give summary @ -No Was smoking cessation discussed for >3mins.? @ -No Was critical care preformed (if so, how long)? @ -No Were there social determinants of health that impacted care today? How? (Homelessness, low income, unemployed, alcoholism, drug addiction, transportation, low edu. Level, literacy, decrease access to med. care, group home, rehab)? @ -No Was there de-escalation of care discussed even if they declined (Discuss DNR or withdrawal of care, Hospice)? DNR status @ -No What co-morbidities impacted this encounter? (DM, HTN, Smoking, COPD, CAD, Cancer, CVA, ARF, Chemo, Hep., AIDS, mental health diagnosis, sleep apnea, morbid obesity)? @ -None Was patient admitted / discharged? Hospital course, mention meds given and route, prescriptions, significant lab abnormalities, going to OR and other pertinent info. @ -28-year-old female presenting to the emergency room with complaints of recurrent nausea, vomiting and generalized abdominal pain which is most severe in the left lower quadrant radiating upward without any changes in bowel patterns. Reports previously diagnosed with irritable bowel syndrome by GI with no changes in symptomatology since her last computed tomography scan which was completed in August 2022. Will begin with conservative treatment of 1 L fluid bolus, Zofran and Bentyl along with urinalysis and urine for . Urinalysis with urinalysis with abnormalities consistent with contamination including 29 epithelial cells, many mucus, few bacteria, large leukocyte esterase, 32 wbc's, small amount of blood, trace protein with cloudy appearance, urine not detected. No significant improvement in symptoms with Zofran, Bentyl and IV hydration will obtain laboratory studies of CBC, CMP, amylase and lipase at this time and give IV Reglan and monitor response. Even lack of new symptoms compared to last computed tomography scan will defer further computed tomography scan. CBC unremarkable CMP demonstrates chloride elevated at 110 and AST elevated at 51 with normal AST, normal bilirubin and normal alkaline phosphatase. Amylase and lipase are normal. These findings discussed with patient. Symptoms improved after Reglan administration. Will continue low-dose Reglan twice a day outpatient until able to follow-up with patient's GI specialist. Education regarding irritable bowel syndrome discussed with patient. Also encouraged possible follow up with GI for HIDA scan to evaluate ejection fraction of gallbladder in the setting of chronic nausea and vomiting. No indication for further workup at this time. Will discharge home in stable condition on Reglan to help with symptomatic management of nausea vomiting and chronic abdominal pain advising follow-up with primary care provider and manager human resources. Undiagnosed new problem with uncertain prognosis? @ -No Drug Therapy requiring intensive monitoring for toxicity (Heparin, Nitro, Insulin, Cardizem)? @ -No Were any procedures done? @ -No Diagnosis/symptom? @ -Nausea and vomiting Acute, or Chronic, or Acute on Chronic? @ -Acute on Chronic Uncomplicated (without systemic symptoms) or Complicated (systemic symptoms)? @ -Uncomplicated Side effects of treatment? @ -No Exacerbation, Progression, or Severe Exacerbation? @ -No Poses a threat to life or bodily function? How? (Chest pain, [place], [place], pneumonia, PE, COPD, DKA, ARF, appy, cholecystitis, CVA, Diverticulitis, Homicidal, Suicidal, threat to staff... and all critical care pts) @ -No Diagnosis/symptom? @ -Abdominal pain Acute, or Chronic, or Acute on Chronic? @ -Acute on chronic Uncomplicated (without systemic symptoms) or Complicated (systemic symptoms)? @ -Uncomplicated Side effects of treatment? @ -none Exacerbation, Progression, or Severe Exacerbation] @ -no Poses a threat to life or bodily function? @ -no. Case discussed with Dr. Escalante. - Lab Data Result diagrams: 03/30/23 11:54 03/30/23 11:54 Lab Results 03/30/23 03/30/23 03/30/23 Range/Units 09:54 09:54 11:54 WBC 8.8 (3.8-10.6) k/uL RBC 4.18 (3.80-5.40) m/uL Hgb 12.0 (11.4-16.0) gm/dL Hct 35.9 (34.0-46.0) % MCV 85.8 (80.0-100.0) fL MCH 28.8 (25.0-35.0) pg MCHC 33.5 (31.0-37.0) g/dL RDW 14.0 (11.5-15.5) % Plt Count 303 (150-450) k/uL MPV 7.2 Neutrophils % 76 % Lymphocytes % 18 % Monocytes % 3 % Eosinophils % 1 % Basophils % 0 % Neutrophils # 6.7 (1.3-7.7) k/uL Lymphocytes # 1.5 (1.0-4.8) k/uL Monocytes # 0.3 (0-1.0) k/uL Eosinophils # 0.1 (0-0.7) k/uL Basophils # 0.0 (0-0.2) k/uL Sodium (137-145) mmol/L Potassium (3.5-5.1) mmol/L Chloride (98-107) mmol/L Carbon Dioxide (22-30) mmol/L Anion Gap mmol/L BUN (7-17) mg/dL Creatinine (0.52-1.04) mg/dL Est GFR (CKD-EPI)AfAm (>60 ml/min/1.73 sqM) Est GFR (CKD-EPI)NonAf (>60 ml/min/1.73 sqM) Glucose (74-99) mg/dL Calcium (8.4-10.2) mg/dL Total Bilirubin (0.2-1.3) mg/dL AST (14-36) U/L ALT (4-34) U/L Alkaline Phosphatase (38-126) U/L Total Protein (6.3-8.2) g/dL Albumin (3.5-5.0) g/dL Amylase (30-110) U/L Lipase (23-300) U/L Urine Color Yellow Urine Appearance Cloudy H (Clear) Urine pH 6.0 (5.0-8.0) Ur Specific [place] 1.032 (1.001-1.035) Urine Protein Trace H (Negative) Urine Glucose (UA) Negative (Negative) Urine Ketones Negative (Negative) Urine Blood Small H (Negative) Urine Nitrite Negative (Negative) Urine Bilirubin Negative (Negative) Urine Urobilinogen <2.0 (<2.0) mg/dL Ur Leukocyte Esterase Large H (Negative) Urine RBC 3 (0-5) /hpf Urine WBC 32 H (0-5) /hpf Ur Squamous Epith Cells 29 H (0-4) /hpf Urine Bacteria Few H (None) /hpf Urine Mucus Many H (None) /hpf Urine HCG, Qual Not Detected (Not Detectd) 03/30/23 Range/Units 11:54 WBC (3.8-10.6) k/uL RBC (3.80-5.40) m/uL Hgb (11.4-16.0) gm/dL Hct (34.0-46.0) % MCV (80.0-100.0) fL MCH (25.0-35.0) pg MCHC (31.0-37.0) g/dL RDW (11.5-15.5) % Plt Count (150-450) k/uL MPV Neutrophils % % Lymphocytes % % Monocytes % % Eosinophils % % Basophils % % Neutrophils # (1.3-7.7) k/uL Lymphocytes # (1.0-4.8) k/uL Monocytes # (0-1.0) k/uL Eosinophils # (0-0.7) k/uL Basophils # (0-0.2) k/uL Sodium 138 (137-145) mmol/L Potassium 3.9 (3.5-5.1) mmol/L Chloride 110 H (98-107) mmol/L Carbon Dioxide 23 (22-30) mmol/L Anion Gap 5 mmol/L BUN 11 (7-17) mg/dL Creatinine 0.79 (0.52-1.04) mg/dL Est GFR (CKD-EPI)AfAm >90 (>60 ml/min/1.73 sqM) Est GFR (CKD-EPI)NonAf >90 (>60 ml/min/1.73 sqM) Glucose 83 (74-99) mg/dL Calcium 8.5 (8.4-10.2) mg/dL Total Bilirubin 0.4 (0.2-1.3) mg/dL AST 30 (14-36) U/L ALT 51 H (4-34) U/L Alkaline Phosphatase 70 (38-126) U/L Total Protein 6.7 (6.3-8.2) g/dL Albumin 3.6 (3.5-5.0) g/dL Amylase 52 (30-110) U/L Lipase 83 (23-300) U/L Urine Color Urine Appearance (Clear) Urine pH (5.0-8.0) Ur Specific [place] (1.001-1.035) Urine Protein (Negative) Urine Glucose (UA) (Negative) Urine Ketones (Negative) Urine Blood (Negative) Urine Nitrite (Negative) Urine Bilirubin (Negative) Urine Urobilinogen (<2.0) mg/dL Ur Leukocyte Esterase (Negative) Urine RBC (0-5) /hpf Urine WBC (0-5) /hpf Ur Squamous Epith Cells (0-4) /hpf Urine Bacteria (None) /hpf Urine Mucus (None) /hpf Urine HCG, Qual (Not Detectd) Disposition Clinical Impression: Nausea & vomiting, Abdominal pain Disposition: HOME SELF-CARE Condition: Stable Instructions (If sedation given, give patient instructions): Acute Nausea and Vomiting (ED), Abdominal Pain (ED) Additional Instructions: Take Reglan prescription as prescribed, may take [id number] antacid such as Pepcid or omeprazole while taking Reglan if needed. Please follow-up with your primary care provider and her gastroenterology specialist. Small frequent meals and good hydration is encouraged. Please return to the Emergency Department if symptoms worsen or any other concerns. Prescriptions: Metoclopramide HCl [Reglan] 5 mg PO BID 30 Days #60 tablet Is patient prescribed a controlled substance at d/c from ED?: No Referrals: None,Stated [REFERRING] - 1-2 days Time of Disposition: 13:36
[2023-03-30 11:36] VITALS: RESP 18
[2023-03-30] MEDS ORDERED: METOCLOPRAMIDE 5 MG/ML 2 ML VIAL IVP STA (11:46)
[2023-03-30 12:22] LABS: Basophils % (A) 0 %; Eosinophils # (A) 0.1 k/uL (0-0.7); Eosinophils % (A) 1 %; HCT 35.9 % (34.0-46.0); Lymphocytes # (A) 1.5 k/uL (1.0-4.8); Lymphocytes % (A) 18 %; MCH 28.8 pg (25.0-35.0); MCHC 33.5 g/dL (31.0-37.0); MCV 85.8 fL (80.0-100.0); Mean Platelet Volume 7.2; Monocytes # (A) 0.3 k/uL (0-1.0); Monocytes % (A) 3 %; Neutrophils # (A) 6.7 k/uL (1.3-7.7); Neutrophils % (A) 76 %; Platelet Count 303 k/uL (150-450); RBC 4.18 m/uL (3.80-5.40); WBC 8.8 k/uL (3.8-10.6)
[2023-03-30 13:06] LABS: ALT 51 U/L (4-34); AST 30 U/L (14-36); African American GFR (CKD) >90 (>60 ml/min/1.73 sqM); Albumin 3.6 g/dL (3.5-5.0); Alkaline Phosphatase 70 U/L (38-126); Amylase 52 U/L (30-110); Anion Gap 5 mmol/L; Blood Urea Nitrogen 11 mg/dL (7-17); Calcium 8.5 mg/dL (8.4-10.2); Carbon Dioxide 23 mmol/L (22-30); Chloride 110 mmol/L (98-107); Glucose 83 mg/dL (74-99); Lipase 83 U/L (23-300); Non-African American GFR(CKD) >90 (>60 ml/min/1.73 sqM); Potassium 3.9 mmol/L (3.5-5.1); Sodium 138 mmol/L (137-145); Total Bilirubin 0.4 mg/dL (0.2-1.3); Total Protein 6.7 g/dL (6.3-8.2)
[2023-03-30 13:45] VITALS: BP 104/61; PULSE 81
== END 2023-03-30 13:46 | disposition home or self-care (01) ==
LOC: EC 09:34
DX: R11.2 Nausea with vomiting, unspecified (principal); R10.32 Left lower quadrant pain; F12.90 Cannabis use, unspecified, uncomplicated; Z86.59 Personal history of other mental and behavioral disorders; Z87.891 Personal history of nicotine dependence
CPT/HCPCS: 36415; 80053; 82150; 83690; 85025; 81001; 81025; 99284; 96374; 96375; 96361; 96372; J0500; J2765; J2405

== ENCOUNTER 2024-05-25 08:16 | Emergency (ER) | payer OTHER ==
[2024-05-25 08:23] VITALS: TEMP 97.9
--- NOTE | 2024-05-25 08:40 | ED ---
General Adult HPI - General Chief complaint: Abdominal Pain Stated complaint: abd,back pain Time Seen by Provider: 05/25/24 08:25 Source: patient, RN notes reviewed Mode of arrival: ambulatory Limitations: no limitations - History of Present Illness Initial comments: Patient is a 29-year-old female present to the emergency department with concerns with left-sided flank pain. Onset of symptoms was a couple of days ago. Discomfort started more posterior however is both anterior and posterior at this point. Patient has had nausea with a couple episodes of vomiting. Patient has had multiple episodes of loose stool. Approximately 2 to 3/day. No hematuria or dysuria. Patient just recently finished her menses. No fever. Discomfort was gradual onset. - Related Data Home Medications Medication Instructions Recorded Confirmed Amitriptyline HCl [Elavil] 10 mg PO HS 05/25/24 05/25/24 Rizatriptan Benzoate [Rizatriptan] 10 mg PO BID PRN 05/25/24 05/25/24 Previous Rx's Medication Instructions Recorded Dicyclomine [Bentyl] 20 mg PO QID PRN #15 tablet 05/25/24 Allergies Allergy/AdvReac Type Severity Reaction Status Date / Time No Known Allergies Allergy Verified 05/25/24 11:01 Review of Systems ROS Statement: Those systems with pertinent positive or pertinent negative responses have been documented in the HPI. ROS Other: All systems not noted in ROS Statement are negative. Constitutional: Denies: fever Eyes: Denies: eye pain ENT: Denies: ear pain Respiratory: Denies: cough, dyspnea Cardiovascular: Denies: chest pain Endocrine: Denies: fatigue Gastrointestinal: Reports: as per HPI, abdominal pain, nausea, vomiting, diarrhea Genitourinary: Denies: dysuria Musculoskeletal: Reports: as per HPI Neurological: Reports: headache (Migraine similar to previous chronic migraines) Past Medical History Past Medical History: No Reported History Additional Past Medical History / Comment(s): Migraines History of Any Multi-Drug Resistant Organisms: None Reported Past Surgical History: No Surgical Hx Reported Additional Past Surgical History / Comment(s): Cervical cerclage Past Psychological History: Depression Smoking Status: Former smoker Past Alcohol Use History: Occasional Past Drug Use History: Marijuana General Exam Limitations: no limitations General appearance: alert, in no apparent distress Head exam: Present: normocephalic Eye exam: Present: normal appearance Neck exam: Present: normal inspection Respiratory exam: Present: normal lung sounds bilaterally Cardiovascular Exam: Present: regular rate, normal rhythm Expanded Peripheral pulses: 2+: Posterior Tibialis (R), Posterior Tibialis (L) GI/Abdominal exam: Present: soft, tenderness (Mild tenderness left mid abdomen) Extremities exam: Present: normal inspection. Absent: calf tenderness Back exam: Present: CVA tenderness (L). Absent: vertebral tenderness Neurological exam: Present: alert. Absent: motor sensory deficit Psychiatric exam: Present: normal affect, normal mood Skin exam: Present: normal color Course Vital Signs 05/25/24 08:20 Temperature 97.9 F Pulse Rate 73 Respiratory 18 Rate Blood Pressure 115/82 O2 Sat by Pulse 98 Oximetry Medical Decision Making - Medical Decision Making Was pt. sent in by a medical professional or institution (Dr. PA, TATTOOER, urgent care, hospital, or fci...) When possible be specific @ -No Did you speak to anyone other than the patient for history (EMS, parent, family, police, friend...)? What history was obtained from this source @ -No Did you review nursing and triage notes (agree or disagree)? Why? @ -I reviewed and agree with nursing and triage notes Were old charts reviewed (outside hosp., previous admission, EMS record, old EKG, old radiological studies, urgent care reports/EKG's, fci records)? Report findings @ -No old charts were reviewed Differential Diagnosis (chest pain, altered mental status, abdominal pain women, abdominal pain men, vaginal bleeding, weakness, fever, dyspnea, syncope, headache, dizziness, GI bleed, back pain, seizure, CVA, palpatations, mental health, musculoskeletal)? @ -Differential Abdominal Pain Women: Appendicitis, Cholecystitis, diverticulosis, ischemic bowel, pancreatitis, hepatitis, UTI, gastroenteritis, AAA, incarcerated hernia, bowel obstruction, constipation, inflammatory bowel, hepatitis, peptic ulcer disease, splenic infarction, perforated viscus, vulvitis, ovarian torsion, PID, kidney stone, placenta abruption, this is not meant to be an all-inclusive list EKG interpreted by me (3pts min.). @ -As above X-rays interpreted by me (1pt min.). @ -None done CT interpreted by me (1pt min.). @ -CT abdomen pelvis without acute abnormality U/S interpreted by me (1pt. min.). @ -None done What testing was considered but not performed or refused? (CT, X-rays, U/S, labs)? Why? @ -None What meds were considered but not given or refused? Why? @ -None Did you discuss the management of the patient with other professionals (professionals i.e. , PA, TATTOOER, lab, RT, psych nurse, social work administrator, auto air conditioning mechanic, teacher, ict help desk officer, wrapper caser)? Give summary @ -No Was smoking cessation discussed for >3mins.? @ -No Was critical care preformed (if so, how long)? @ -No Were there social determinants of health that impacted care today? How? (Homelessness, low income, unemployed, alcoholism, drug addiction, transportation, low edu. Level, literacy, decrease access to med. care, group home, rehab)? @ -No Was there de-escalation of care discussed even if they declined (Discuss DNR or withdrawal of care, Hospice)? DNR status @ -No What co-morbidities impacted this encounter? (DM, HTN, Smoking, COPD, CAD, Cancer, CVA, ARF, Chemo, Hep., AIDS, mental health diagnosis, sleep apnea, morbid obesity)? @ -None Was patient admitted / discharged? Hospital course, mention meds given and route, prescriptions, significant lab abnormalities, going to OR and other pertinent info. @ -Patient reevaluated and feeling much better however still has mild nausea. Patient and family updated on results and plan. Patient states her symptoms are actually somewhat chronic. Patient will be discharged with follow-up with prescription. Undiagnosed new problem with uncertain prognosis? @ -No Drug Therapy requiring intensive monitoring for toxicity (Heparin, Nitro, Insulin, Cardizem)? @ -No Were any procedures done? @ -No Diagnosis/symptom? @ -Abdominal pain, headache Acute, or Chronic, or Acute on Chronic? @ -Acute, chronic Uncomplicated (without systemic symptoms) or Complicated (systemic symptoms)? @ -Default Side effects of treatment? @ -No Exacerbation, Progression, or Severe Exacerbation? @ -No Poses a threat to life or bodily function? How? (Chest pain, [place], [place], pneumonia, PE, COPD, DKA, ARF, appy, cholecystitis, CVA, Diverticulitis, Homicidal, Suicidal, threat to staff... and all critical care pts) @ -No - Lab Data Result diagrams: 05/25/24 08:53 05/25/24 08:53 Lab Results 05/25/24 05/25/24 05/25/24 Range/Units 08:53 08:53 08:53 WBC 5.4 (3.8-10.6) k/uL RBC 5.25 (3.80-5.40) m/uL Hgb 14.7 (11.4-16.0) gm/dL Hct 44.9 (34.0-46.0) % MCV 85.4 (80.0-100.0) fL MCH 28.0 (25.0-35.0) pg MCHC 32.8 (31.0-37.0) g/dL RDW 13.2 (11.5-15.5) % Plt Count 302 (150-450) k/uL MPV 6.6 Neutrophils % 65 % Lymphocytes % 22 % Monocytes % 6 % Eosinophils % 4 % Basophils % 0 % Neutrophils # 3.5 (1.3-7.7) k/uL Lymphocytes # 1.2 (1.0-4.8) k/uL Monocytes # 0.3 (0-1.0) k/uL Eosinophils # 0.2 (0-0.7) k/uL Basophils # 0.0 (0-0.2) k/uL PT 10.5 (10.0-12.5) sec INR 0.9 (<1.2) APTT 24.8 (22.0-30.0) sec Sodium 140 (137-145) mmol/L Potassium 3.8 (3.5-5.1) mmol/L Chloride 106 (98-107) mmol/L Carbon Dioxide 25 (22-30) mmol/L Anion Gap 9 mmol/L BUN 8 (7-17) mg/dL Creatinine 0.77 (0.52-1.04) mg/dL Est GFR (CKD-EPI)AfAm >90 (>60 ml/min/1.73 sqM) Est GFR (CKD-EPI)NonAf >90 (>60 ml/min/1.73 sqM) Glucose 97 (74-99) mg/dL Calcium 9.0 (8.4-10.2) mg/dL Total Bilirubin 0.4 (0.2-1.3) mg/dL AST 28 (14-36) U/L ALT 38 H (4-34) U/L Alkaline Phosphatase 89 (38-126) U/L Total Protein 7.4 (6.3-8.2) g/dL Albumin 4.3 (3.5-5.0) g/dL Amylase 41 (30-110) U/L Lipase 67 (23-300) U/L HCG, Quant <2.4 mIU/mL Urine Color Urine Appearance (Clear) Urine pH (5.0-8.0) Ur Specific Merlin (1.001-1.035) Urine Protein (Negative) Urine Glucose (UA) (Negative) Urine Ketones (Negative) Urine Blood (Negative) Urine Nitrite (Negative) Urine Bilirubin (Negative) Urine Urobilinogen (<2.0) mg/dL Ur Leukocyte Esterase (Negative) Urine RBC (0-5) /hpf Urine WBC (0-5) /hpf Ur Squamous Epith Cells (0-4) /hpf Urine Bacteria (None) /hpf Urine Mucus (None) /hpf 05/25/24 Range/Units 10:13 WBC (3.8-10.6) k/uL RBC (3.80-5.40) m/uL Hgb (11.4-16.0) gm/dL Hct (34.0-46.0) % MCV (80.0-100.0) fL MCH (25.0-35.0) pg MCHC (31.0-37.0) g/dL RDW (11.5-15.5) % Plt Count (150-450) k/uL MPV Neutrophils % % Lymphocytes % % Monocytes % % Eosinophils % % Basophils % % Neutrophils # (1.3-7.7) k/uL Lymphocytes # (1.0-4.8) k/uL Monocytes # (0-1.0) k/uL Eosinophils # (0-0.7) k/uL Basophils # (0-0.2) k/uL PT (10.0-12.5) sec INR (<1.2) APTT (22.0-30.0) sec Sodium (137-145) mmol/L Potassium (3.5-5.1) mmol/L Chloride (98-107) mmol/L Carbon Dioxide (22-30) mmol/L Anion Gap mmol/L BUN (7-17) mg/dL Creatinine (0.52-1.04) mg/dL Est GFR (CKD-EPI)AfAm (>60 ml/min/1.73 sqM) Est GFR (CKD-EPI)NonAf (>60 ml/min/1.73 sqM) Glucose (74-99) mg/dL Calcium (8.4-10.2) mg/dL Total Bilirubin (0.2-1.3) mg/dL AST (14-36) U/L ALT (4-34) U/L Alkaline Phosphatase (38-126) U/L Total Protein (6.3-8.2) g/dL Albumin (3.5-5.0) g/dL Amylase (30-110) U/L Lipase (23-300) U/L HCG, Quant mIU/mL Urine Color Yellow Urine Appearance Clear (Clear) Urine pH 5.5 (5.0-8.0) Ur Specific Merlin 1.028 (1.001-1.035) Urine Protein Trace H (Negative) Urine Glucose (UA) Negative (Negative) Urine Ketones Negative (Negative) Urine Blood Small H (Negative) Urine Nitrite Negative (Negative) Urine Bilirubin Negative (Negative) Urine Urobilinogen <2.0 (<2.0) mg/dL Ur Leukocyte Esterase Small H (Negative) Urine RBC 4 (0-5) /hpf Urine WBC 9 H (0-5) /hpf Ur Squamous Epith Cells 2 (0-4) /hpf Urine Bacteria Rare H (None) /hpf Urine Mucus Many H (None) /hpf Disposition Clinical Impression: Abdominal pain Disposition: HOME SELF-CARE Condition: Stable Instructions (If sedation given, give patient instructions): Abdominal Pain (ED) Additional Instructions: Please do follow-up with primary care physician in the next couple of days for recheck. Also consider GI follow-up. Return for increased pain, fever, vomiti ng uncontrollably, worsening or changing symptoms or any other concerns. Prescription has been sent to pharmacy Prescriptions: Dicyclomine [Bentyl] 20 mg PO QID PRN #15 tablet PRN Reason: Pain Is patient prescribed a controlled substance at d/c from ED?: No Referrals: Sharona Marie MD [Primary Care Provider] - 1-2 days Time of Disposition: 11:37
[2024-05-25] MEDS: SODIUM CHLORIDE 0.9% 1,000 ML IV STA (08:59)
[2024-05-25] MEDS: ONDANSETRON 4 MG/2 ML VIAL IVP STA ×2 (09:00→11:39)
[2024-05-25] MEDS: HYDROmorphone 1 MG/ML 1 ML SYRINGE IVP STA (09:00)
[2024-05-25] MEDS: FAMOTIDINE 20 MG/2 ML VIAL IV STA (09:00)
[2024-05-25 09:01] LABS: Basophils % (A) 0 %; Eosinophils # (A) 0.2 k/uL (0-0.7); Eosinophils % (A) 4 %; HCT 44.9 % (34.0-46.0); HGB 14.7 gm/dL (11.4-16.0); Lymphocytes # (A) 1.2 k/uL (1.0-4.8); Lymphocytes % (A) 22 %; MCHC 32.8 g/dL (31.0-37.0); MCV 85.4 fL (80.0-100.0); Mean Platelet Volume 6.6; Monocytes # (A) 0.3 k/uL (0-1.0); Monocytes % (A) 6 %; Neutrophils # (A) 3.5 k/uL (1.3-7.7); Neutrophils % (A) 65 %; Platelet Count 302 k/uL (150-450); RBC 5.25 m/uL (3.80-5.40); RDW 13.2 % (11.5-15.5); WBC 5.4 k/uL (3.8-10.6)
[2024-05-25 09:09] LABS: INR 0.9 (<1.2); Prothrombin Time 10.5 sec (10.0-12.5)
[2024-05-25 09:10] LABS: Partial Thromboplastin Time 24.8 sec (22.0-30.0)
[2024-05-25 09:11] LABS: ALT 38 U/L (4-34); AST 28 U/L (14-36); African American GFR (CKD) >90 (>60 ml/min/1.73 sqM); Albumin 4.3 g/dL (3.5-5.0); Alkaline Phosphatase 89 U/L (38-126); Amylase 41 U/L (30-110); Anion Gap 9 mmol/L; Blood Urea Nitrogen 8 mg/dL (7-17); Carbon Dioxide 25 mmol/L (22-30); Chloride 106 mmol/L (98-107); Glucose 97 mg/dL (74-99); Lipase 67 U/L (23-300); Non-African American GFR(CKD) >90 (>60 ml/min/1.73 sqM); Potassium 3.8 mmol/L (3.5-5.1); Sodium 140 mmol/L (137-145); Total Bilirubin 0.4 mg/dL (0.2-1.3); Total Protein 7.4 g/dL (6.3-8.2)
[2024-05-25 09:27] LABS: HCG,Quantitative Serum <2.4 mIU/mL
[2024-05-25 10:24] LABS: Appearance,Urine Clear (Clear); Bacteria,Urine Rare /hpf; Bilirubin,Urine Negative (Negative); Blood,Urine Small (Negative); Color,Urine Yellow; Glucose,Urine (UA) Negative (Negative); Ketones,Urine Negative (Negative); Leukocyte Esterase,Urine Small (Negative); Mucus,Urine Many /hpf; Nitrite,Urine Negative (Negative); PH, Urine 5.5 (5.0-8.0); Protein,Urine Trace (Negative); RBC,Urine 4 /hpf (0-5); Specific Gravity,Urine 1.028 (1.001-1.035); Squamous Epithelial Cell,Urine 2 /hpf (0-4); Urobilinogen,Urine <2.0 mg/dL (<2.0); WBC,Urine 9 /hpf (0-5)
--- NOTE | 2024-05-25 10:41 | CT ---
EXAMINATION TYPE: CT abdomen pelvis wo con CT DLP: 1016.2 mGycm, Automated exposure control for dose reduction was used. DATE OF EXAM: 05/25/2024 10:30 AM COMPARISON: CT abdomen pelvis 09/25/2022, 07/05/2022, 09/29/2017 CLINICAL INDICATION:Female, 29 years old with history of abdominal pain; Abdominal pain TECHNIQUE: Standard CT of the abdomen and pelvis without IV or oral contrast. Lack of IV or oral co ntrast limits evaluation of solid and hollow organ viscera. Coronal and sagittal reformats were perfo rmed. FINDINGS: LOWER CHEST: Unremarkable noncontrast appearance ABDOMEN LIVER: Unremarkable noncontrast appearance GALLBLADDER AND BILE DUCTS: Unremarkable noncontrast appearance PANCREAS: Unremarkable noncontrast appearance SPLEEN: Unremarkable noncontrast appearance ADRENAL GLANDS: Unremarkable noncontrast appearance. KIDNEYS AND URETERS: No evidence of hydronephrosis or renal calculus. No ureteral calculus identified . PELVIS BLADDER: Significantly underdistended which limits evaluation. REPRODUCTIVE: Unremarkable noncontrast appearance ABDOMEN & PELVIS STOMACH AND BOWEL: Stomach and duodenum are unremarkable. No focal bowel wall thickening or surroundi ng inflammatory changes. The appendix is within normal limits. Redundant sigmoid colon. No evidence o f bowel obstruction. PERITONEUM: No evidence of pneumoperitoneum or free fluid. VASCULATURE: No evidence of aortic aneurysm. Stable left-sided pelvic phlebolith. MUSCULOSKELETAL: No acute osseous abnormalities LYMPH NODES: No gross evidence for lymphadenopathy. SOFT TISSUE/ABDOMINAL WALL: Unremarkable IMPRESSION: 1. No CT evidence for acute abdominal/pelvic process within limitations of a noncontrast exam. [facility], , 05/25/2024 10:39 AM
[2024-05-25 12:06] VITALS: BP 105/64; PULSE 65; RESP 16
== END 2024-05-25 12:07 | disposition home or self-care (01) ==
LOC: EC 08:16
DX: R10.9 Unspecified abdominal pain (principal); Z87.891 Personal history of nicotine dependence
CPT/HCPCS: 36415; 80053; 82150; 83690; 85025; 85610; 85730; 81001; 84702; 74176; 99284; 96374; 96361 ×3; 96375 ×2; 96376; J2405; J3490; J1171